=== PATIENT | female | born 1935 | race Caucasian/White ===

== ENCOUNTER → 2018-03-25 09:34 | Outpatient (CLI) | payer MEDICARE, OTHER, SELFPAY | PROVIDERS: PCP Family Medicine; Visit Provider Orthopaedic Surgery | DX: M79.604 Pain in right leg (principal); I89.0 Lymphedema, not elsewhere classified; M47.26 Other spondylosis with radiculopathy, lumbar region | CPT/HCPCS: 99213 ==

== ENCOUNTER 2018-04-15 11:57 | Emergency (ER) | payer MEDICARE, OTHER, SELFPAY ==
[2018-04-15 11:58] VITALS: BP 150/64; PULSE 92; RESP 18; TEMP 36.7; O2SAT 98
--- NOTE | 2018-04-15 12:18 | ED.GENADUL_ITS ---
Discharge Plan Discharge Details Chief Complaint: Chest/Rib Reason For Visit: SALTY RESCUE Primary Care Provider: Jackie Polk ED Provider: Porfirio Banda Home Meds and New Rx's Prescriptions: No Action JOBST STOCKINGS RF: 0 aspirin [Aspir-81] 81 MG tablet,delayed release (DR/EC) 81 mg PO DAILY RF: 0 naproxen sodium [Aleve] 220 MG tablet 220 mg PO bid prn RF: 0 meclizine 12.5 MG tablet 12.5 mg PO Q8H PRN Qty: 60 RF: 3 pravastatin 10 MG tablet 10 mg PO HS Qty: 90 RF: 4 omeprazole 20 MG capsule,delayed release(DR/EC) 20 mg PO DAILY Qty: 90 RF: 4 furosemide [Lasix] 20 MG tablet 20 mg PO QAM PRNQty: 30 RF: 6 multivitamin 1 EACH capsule 1 tab PO DAILY RF: 0 Medical Decision Making MDM Narrative Medical decision making narrative: 83-year-old female with ground-level mechanical fall at home and subsequent left chest and right foot injury. She arrives afebrile, well-appearing, normal oxygenation. Referred for x-ray to rule out underlying fracture. There is no evidence of foot or chest acute bony injury. Chest is otherwise unremarkable without pneumothorax. Patient given Tylenol and incentive spirometry. She is ambulatory without difficulty. She stable for discharge home with final diagnosis of rib contusion and foot sprain HPI - General Adult General Date/Time Provider Initiated Documentation: 04/15/18 12:06 . Limitations to Documentation: no limitations . Information obtained by: EMS . History of Present Illness 83 year old F presents to the emergency department with the chief complaint of Fall, described as moderate, Quality is described as aching, and is localized to the chest and left. Patient reports no radiation. Patient started experiencing this minute(s) and it has been constant. Movement improves symptom(s), and Rest improves symptom(s), Movement worsens symptoms . Patient notes other (Foot pain). HPI Narrative: This is an 83-year-old female who tripped on the threshold of her doorway at home and fell forward striking her chest. She did not strike her head or neck. She did not of loss of consciousness. She had immediate onset of achy, left-sided rib pain is worse with movement. No significant shortness of breath. She also complains of foot pain to the dorsum of right foot. Patient lives alone. She recently began outpatient therapy for chronic lower extremity weakness and edema that is unchanged Related Data Home Medications Medication Instructions Recorded Confirmed Jobst Stockings 01/29/13 11/27/14 multivitamin 1 tab PO DAILY 11/15/14 04/15/18 aspirin [Aspir-81] 81 mg PO DAILY tab-cap 12/29/14 04/15/18 naproxen sodium [Aleve] 220 mg PO bid prn tab-cap 08/24/15 04/15/18 furosemide [Lasix] 20 mg PO QAM PRN #30 tab-cap 10/26/17 04/15/18 Previous Rx's Medication Instructions Recorded meclizine 12.5 mg PO Q8H PRN #60 tab-cap 10/26/17 omeprazole 20 mg PO DAILY #90 tab-cap 10/26/17 pravastatin 10 mg PO HS #90 tab-cap 10/26/17 Allergies Allergy/AdvReac Type Severity Reaction Status Date / Time Tetanus Vaccines and Toxoid Allergy Mild LOCALIZED Unverified 04/15/18 12:09 REACTION indomethacin AdvReac Unknown Unverified 04/15/18 12:09 gavastatin Allergy Intermediate LE edema Uncoded 04/15/18 12:09 General Stated Complaint: Chest/Rib VIDYA: 3 Review of Systems Review of Systems 8 systems reviewed, otherwise negative [facility] Family History Mother Neoplasm Father Heart disease Myocardial infarction Asthma Sister Neoplasm Sister Neoplasm Brother No problems noted. Sister No problems noted. Sister No problems noted. Brother No problems noted. Son No problems noted. Son No problems noted. Son No problems noted. Daughter No problems noted. Daughter No problems noted. Daughter No problems noted. Medical History Gastroesophageal reflux disease Hyperlipidemia Social History Smoking/Tobacco Use Status: Never Surgical History Arthroplasty Biopsy of breast KNEE FUSION Replacement of total knee joint Rotator Cuff Repair Exam Narrative Exam Narrative: GEN: awake, alert, oriented 3. Pleasant, well groomed, interactive. HEAD: Normocephalic, atraumatic ENT: Mucous membranes moist, oropharynx unremarkable, External ear exam unremarkable EYES: PERRL, EOMI NECK: Full ROM, no WINTER, no menigismus CHEST/RESP: Left side chest lateral tenderness to palpation, clear to auscultation bilateral, no wheeze/rhonchi/rales CARDIOVASCULAR: RRR, no murmur, rub roland. 2+ Rad pulse bilateral ABDOMEN: Soft, nontender, no mass. +Bowel sounds EXT: Full ROM, no edema, no rash. The dorsum of the right foot is mildly swollen and tender to palpation Neuro: Grossly normal neurologic exam, conversant, interactive. Psych: Speech fluent, thoughts congruent, affect normal Course Vital Signs Temperature 36.7 C 04/15/18 11:58 Pulse 92 H 04/15/18 11:58 Respiratory Rate 18 04/15/18 11:58 Blood Pressure 150/64 H 04/15/18 11:58 Pulse Oximetry 98 04/15/18 11:58 Temperature 36.7 C 04/15/18 11:58 Pulse 92 H 04/15/18 11:58 Respiratory Rate 18 04/15/18 11:58 Blood Pressure 150/64 H 04/15/18 11:58 Pulse Oximetry 98 04/15/18 11:58
[2018-04-15 12:59] LABS: Bilirubin Negative (Negative); Blood Negative (Negative); Clarity Clear; Glucose Negative (Negative); Ketones Negative (Negative); Leukocyte Esterase Negative (Negative); Nitrite Negative (Negative); Specific Gravity 1.015 (1.005-1.025); Urobilinogen 0.2 EU/dL (Up TO 0.2); pH 5.5 (5-8)
--- NOTE | 2018-04-15 13:37 | DI.RAD_ITS ---
SYMPTOMS/DIAGNOSIS: DORSAL FOOT PAIN AFTER FALL, LT CHEST PAIN RIGHT FOOT: Three views. No acute fracture or dislocation is identified. There are mild degenerative changes seen of the foot. Vascular calcifications are seen in the soft tissues. No radiopaque foreign bodies are seen in the soft tissues. Calcaneal spurs are seen posteriorly. IMPRESSION: No acute fracture or dislocation. LEFT RIBS AND PA AND LATERAL CHEST: Comparison 05/25/12. The heart size and pulmonary vasculature are within normal limits. The lungs are clear. No pneumothorax or pleural effusion is seen. No evidence of a left rib fracture is seen. There are degenerative changes seen in the spine. IMPRESSION: No acute pulmonary process.
--- NOTE | 2018-04-15 14:17 | PDOC.ERCMPRO ---
Care Management Progress Note 04/15/18-Pt seen here today for Left rib pain after a fall at home. This CM was asked to do IS teaching with Pt and the importance of using it Q2hs with deep deep breaths. Pt was able to pull 1100 ML's. Pt encouraged to keep her physical therapy appt tomorrow and was explained to her they may be able to help with adaptive movements while her rib pain is healing and moving would be ideal as not to get pneumonia.
[2018-04-15] MEDS: Acetaminophen 500 MG TAB 650 MG PO (14:43)
[2018-04-15 14:52] VITALS: BP 158/84; PULSE 106; RESP 16; TEMP 36.6; O2SAT 98
== END 2018-04-15 14:51 | disposition home or self-care (01) ==
PROVIDERS: Emergency Provider Emergency Medicine; PCP Family Medicine
DX: S20.212A Contusion of left front wall of thorax, initial encounter (principal); S93.601A Unspecified sprain of right foot, initial encounter; W18.30XA Fall on same level, unspecified, initial encounter
CPT/HCPCS: 99284; 71046; 71100; 73630; 81003

== ENCOUNTER 2018-11-17 00:24 | Outpatient (CLI) | payer MEDICARE, OTHER, SELFPAY ==
--- NOTE | 2018-11-17 10:40 | DI.MAMMO_ITS ---
SYMPTOMS/DIAGNOSIS: SCREENING, Z12.31 MAMMOGRAM: Mammograms were interpreted according to the usual protocol including computer analysis with CAD system, tomosynthesis and C view imaging. The breast tissue is moderately radiodense. Scattered fibronodular densities are demonstrated bilaterally with no evidence of a dominant mass. There has been no significant interval change when compared with previous images. SUMMARY: No evidence of malignancy, category 1. Yearly screening mammography is recommended. Breast density category B. SA ASSESSMENT OF FINDINGS: Negative. Category 1. Patient will receive a letter notifying them of these results. BI-RADS category B. There are scattered areas of fibroglandular density.
== END 2018-11-17 00:44 ==
PROVIDERS: PCP Family Medicine; Visit Provider Family Medicine
DX: Z12.31 Encounter for screening mammogram for malignant neoplasm of breast (principal)
CPT/HCPCS: 77063; 77067

== ENCOUNTER 2018-11-17 10:40 | Outpatient (CLI) | payer MEDICARE, OTHER, SELFPAY ==
[2018-11-17 12:17] LABS: ALT 27 U/L (12-78); AST 28 U/L (15-37); Albumin 3.8 g/dL (3.4-5.0); Alkaline Phosphatase 93 U/L (46-116); Anion Gap 9.9 mmol/L (3-11); BUN 24 mg/dL (7-18); Bilirubin, Total 0.3 mg/dL (0.2-1.0); CO2 27.1 mmol/L (21.0-32.0); CREATININE 0.92 mg/dL (0.55-1.02); Calcium 9.4 mg/dL (8.5-10.1); Chloride 105 mmol/L (98-107); Estimated GFR 58.44 (mL/min/1.73m2); Glucose 114 mg/dL (70-100); Magnesium 2.1 mg/dL (1.8-2.4); Potassium 4.5 mmol/L (3.5-5.1); Sodium 142 mmol/L (136-145); Total Protein 7.2 g/dL (6.4-8.2)
== END 2018-11-17 11:00 ==
PROVIDERS: PCP Family Medicine; Visit Provider Family Medicine
DX: E83.42 Hypomagnesemia (principal); M79.89 Other specified soft tissue disorders
CPT/HCPCS: 36415; 80053; 83735

== ENCOUNTER 2019-01-10 16:46 | Outpatient (CLI) | payer MEDICARE, OTHER, SELFPAY ==
--- NOTE | 2019-01-10 11:15 | DI.RAD_ITS ---
SYMPTOMS/DIAGNOSIS: LEFT SCIATICA, M54.32 LUMBAR SPINE: AP, lateral and bilateral oblique views of the lumbar spine were obtained. There is again seen a left convex scoliotic curvature of the thoracolumbar spine. No acute fractures or subluxations are seen. No spondylolisthesis is present. There are endplate osteophytes seen throughout the lumbar spine, but most marked from T12-L1 through L2-L3. Degenerative changes of the facets are present at multiple levels, but most marked from L3-4 through L5-S1. Vascular calcifications are present. Degenerative changes are seen at the sacroiliac joints. IMPRESSION: Moderately severe degenerative changes in the lumbar spine.
== END 2019-01-10 17:06 ==
PROVIDERS: PCP Family Medicine; Visit Provider Family Medicine
DX: M54.32 Sciatica, left side (principal); M51.16 Intervertebral disc disorders with radiculopathy, lumbar region; M51.17 Intervertebral disc disorders with radiculopathy, lumbosacral region
CPT/HCPCS: 72110

== ENCOUNTER 2019-02-20 08:41 | Emergency (ER) | payer MEDICARE, OTHER, SELFPAY ==
[2019-02-20 08:47] VITALS: BP 167/74; PULSE 86; RESP 12; TEMP 36.7; O2SAT 98
--- NOTE | 2019-02-20 09:09 | ED.GENADUL_ITS ---
Discharge Plan Disposition Patient Disposition: HOME Condition: Stable Discharge Details Chief Complaint: Nk/Back Pain Clinical Impression: Sciatica, Bilateral edema of lower extremity, Low back pain Primary Care Provider: Jackie Polk ED Provider: Earl Huntley Home Meds and New Rx's Prescriptions: New prednisone 50 mg tablet 50 mg PO DAILY Qty: 5 RF: 0 No Action meclizine 12.5 mg tablet 12.5 mg PO Q8H PRN Qty: 60 RF: 3 pravastatin 10 mg tablet 10 mg PO HS Qty: 90 RF: 4 omeprazole 20 mg capsule,delayed release(DR/EC) 20 mg PO DAILY Qty: 90 RF: 4 furosemide [Lasix] 20 mg tablet 20 mg PO QAM PRN (Reason: edema) Qty: 30 RF: 3 JOBST STOCKINGS RF: 0 aspirin [Aspir-81] 81 MG tablet,delayed release (DR/EC) 81 mg PO DAILY RF: 0 multivitamin 1 EACH capsule 1 tab PO DAILY RF: 0 Discharge Instructions Instructions: Low Back Strain (ED), Sciatica (ED) Additional Instructions: Please take prednisone 1 tablet daily for the next 5 days as prescribed. Please take ibuprofen 600 mg and acetaminophen 1 g every 8 hours together as needed for pain. Please return to emergency department for shortness of breath chest pain increasing pain or other concern. Medical Decision Making 84-year-old female with lower back pain with left lower extremity pain shooting down the posterior lateral leg consistent with sciatic irritation and iliotibial band pain no evidence of systemic illness no evidence of cord compression no evidence of infection plan for prednisone burst continued ibuprofen and Tylenol and primary care visit as scheduled this week for consideration of physical therapy for long-term management letter patient's low back pain Patient also reports increased lower extremity swelling without shortness of breath lungs are clear bilaterally no JVD no evidence of congestive heart failure small concern for DVT will obtain duplex as part of visit today. No neurodiagnostic tech in the emergency department today patient with no acute changes or findings I feel it is reasonable to defer duplex until tomorrow a.m. we will schedule an appointment for her tomorrow. Discussed pros and cons of plan with patient patient and family agree we will have the ultrasound tomorrow and see the primary as scheduled on Thursday HPI 84-year-old female past medical history of GERD on omeprazole lower extremity edema without history of congestive heart failure on Lasix 20 mg once daily and bilateral knee replacement presents with approximately 3 to 4 days of lower back pain acute on chronic with pain radiating down left buttock and left lateral thigh to the area of her lateral knee. No trauma no chest pain no shortness of breath no dyspnea on exertion. Patient morbidly obese. Taking acetaminophen and ibuprofen intermittently with minimal to no relief. No bowel or bladder incontinence no change in sensation no ankle weakness no foot drop no change in gait pain is worse when sedentary better after moving around.pain is sharp no shortness of breath chest pain nausea vomiting diarrhea loss of consciousness fever chills or trauma General Date/Time Provider Initiated Documentation: 02/20/19 08:41 . Related Data Home Medications Medication Instructions Recorded Confirmed Jobst Stockings 01/29/13 01/10/19 multivitamin 1 tab PO DAILY 11/15/14 02/20/19 aspirin [Aspir-81] 81 mg PO DAILY tab-cap 12/29/14 02/20/19 furosemide 20 mg tablet 20 mg PO QAM PRN #30 tab-cap 11/04/18 02/20/19 meclizine 12.5 mg tablet 12.5 mg PO Q8H PRN #60 tab-cap 11/04/18 02/20/19 omeprazole 20 mg capsule,delayed 20 mg PO DAILY #90 tab-cap 11/04/18 02/20/19 release pravastatin 10 mg tablet 10 mg PO HS #90 tab-cap 11/04/18 02/20/19 prednisone 50 mg PO DAILY #5 tab 02/20/19 Previous Rx's Medication Instructions Recorded furosemide 20 mg tablet 20 mg PO QAM PRN #30 tab-cap 11/04/18 meclizine 12.5 mg tablet 12.5 mg PO Q8H PRN #60 tab-cap 11/04/18 omeprazole 20 mg capsule,delayed 20 mg PO DAILY #90 tab-cap 11/04/18 release pravastatin 10 mg tablet 10 mg PO HS #90 tab-cap 11/04/18 prednisone 50 mg PO DAILY #5 tab 02/20/19 Allergies Allergy/AdvReac Type Severity Reaction Status Date / Time Tetanus Vaccines and Toxoid Allergy Mild LOCALIZED Unverified 02/20/19 08:50 REACTION indomethacin AdvReac Unknown Unverified 02/20/19 08:50 gavastatin Allergy Intermediate LE edema Uncoded 02/20/19 08:50 General Stated Complaint: Nk/Back Pain VIDYA: 3 Review of Systems Review of Systems All systems reviewed & are unremarkable except as noted in HPI and below PFSH Social History (Updated 11/08/18 @ 10:07 by Leonardo Mac) Smoking/Tobacco Use Status: Never Alcohol Intake: never Drug use: Never Substance use type: does not use Caregiver/Support person: No Pets and animals: No Sexually active: No Current gender identity: decline to answer What is your relationship status?: How often do you talk on the phone with friends or family?: decline to answer How often do you get together with friends or relatives?: decline to answer How often do you attend yazdanism or religion services?: decline to answer Do you belong to any clubs or organized social groups?: no Panel score (0-1 are the most socially isolated patients): 0 Duration: 15-30 minutes/day Frequency: daily Estephania/Roman Catholic: No preference Special estephania needs: No Seatbelt use: always Drive intox or ride w/intox front loader residential driver: No Do you feel safe at home: Yes Do you feel safe in your relationship?: Yes Exam Narrative Exam Narrative: Pulse oximetry reviewed by me and is normal: Constitutional: in no acute distress. well appearing. oriented to person, place, and time. Eyes: conjunctivae are normal. Pupils are equal, round, and reactive to light. No scleral icterus. extraocular muscles are intact Ears/Nose/Mouth/Throat: muscousal membranes are moist. Musculoskeletal: neck is supple. normal range of motion in all extremities. Mild tenderness to palpation bilateral lower lateral back no midline tenderness no deformity no step-offs no skin changes no rash no ecchymosis steady gait mildly antalgic on the first few steps and then resolving normal reflexes normal plantar flexion and extension. No knee effusion no knee tenderness palpation patient with limited bilateral knee range of motion consistent with patient's long-term exam status post surgical replacement. Cardiovascular: Normal rate and rhythm. No lower extremity edema Respiratory: effort is normal. no stridor or respiratory distress. GastrointestinaI: abdomen soft, +BS, nontender, -rebound, -guarding. Neurological: alert and oriented to person, place, and time. normal strength, no tremor. Skin: Skin is warm and dry. not diaphoretic. Distal perfusion intact, warm extremities, cap refill < 2 seconds. Hem/Lymph/Imm: No cervical LAD, no goiter, no conjunctival pallor Psych: normal mood and affect. behavior is normal Triage and nurse notes reviewed. Course Vital Signs Temperature 36.7 C 02/20/19 08:47 Pulse 86 02/20/19 08:47 Respiratory Rate 12 02/20/19 08:47 Blood Pressure 167/74 H 02/20/19 08:47 Pulse Oximetry 98 02/20/19 08:47 Temperature 36.7 C 02/20/19 08:47 Temperature Source Temporal Artery Scan 02/20/19 08:47 Pulse 86 02/20/19 08:47 Respiratory Rate 12 02/20/19 08:47 Respiratory Effort Non-Labored 02/20/19 08:49 Blood Pressure 167/74 H 02/20/19 08:47 Blood Pressure Position Sitting 02/20/19 08:47 Pulse Oximetry 98 02/20/19 08:47 Oxygen Delivery Method Room Air 02/20/19 08:47 Oxygen Flow Rate 0 02/20/19 08:47 Pain Level 10 02/20/19 08:47
[2019-02-20] MEDS: Ibuprofen 600 MG TAB PO (09:15)
[2019-02-20] MEDS: Acetaminophen 500 MG TAB 1000 MG PO (09:16)
== END 2019-02-20 09:46 | disposition home or self-care (01) ==
PROVIDERS: Emergency Provider Emergency Medicine; PCP Family Medicine
DX: M54.42 Lumbago with sciatica, left side (principal); G89.29 Other chronic pain; R60.0 Localized edema; E66.01 Morbid (severe) obesity due to excess calories
CPT/HCPCS: 99283

== ENCOUNTER 2019-02-21 09:35 | Emergency (ER) | payer MEDICARE, OTHER, SELFPAY ==
[2019-02-21 09:41] VITALS: BP 157/86; PULSE 67; RESP 16; TEMP 36.1; O2SAT 98
--- NOTE | 2019-02-21 10:30 | W.ED.GENAD ---
Discharge Plan Disposition Patient Disposition: HOME Condition: Stable Discharge Details Chief Complaint: Recheck Clinical Impression: Localized swelling of both lower legs Primary Care Provider: Jackie Polk ED Provider: Veena Jolly Home Meds and New Rx's Prescriptions: Continued meclizine 12.5 mg tablet 12.5 mg PO Q8H PRN Qty: 60 RF: 3 pravastatin 10 mg tablet 10 mg PO HS Qty: 90 RF: 4 omeprazole 20 mg capsule,delayed release(DR/EC) 20 mg PO DAILY Qty: 90 RF: 4 furosemide [Lasix] 20 mg tablet 20 mg PO QAM PRN (Reason: edema) Qty: 30 RF: 3 JOBST STOCKINGS RF: 0 aspirin [Aspir-81] 81 MG tablet,delayed release (DR/EC) 81 mg PO DAILY RF: 0 multivitamin 1 EACH capsule 1 tab PO DAILY RF: 0 No Action celecoxib 200 mg capsule 200 mg PO DAILY Qty: 30 RF: 0 prednisone 50 mg tablet 25 mg PO DAILY Qty: 4 RF: 0 Discharge Instructions Instructions: Sciatica (ED), Leg Edema (ED) Additional Instructions: Please return immediately to the emergency department if you develop any new or worsening symptoms or if you become otherwise concerned. It is extremely important that you call as soon as possible to make an appointment to be seen in follow-up for this visit by your primary care doctor. Referrals: Jackie Polk MD [Primary Care Provider] - Discharge Data Discharge Date/Time-TO BE ENTERED AT DEPARTURE: 02/21/19 10:50 Medical Decision Making Maria R Pierre is an 84 y/o woman with h/o HLD, GERD, CHF who presented to the emergency department to obtain her US after undergoing DVT studies as an outpt this am as ordered yesterday at prior ED visit. Pt with no complaint, states back pain that she presented with yesterday now much improved and no new symptoms. On exam Pt is very well and non-toxic appearing. Non-focal neuro exam. Pt walking about the ED without issue. Exam/hx not c/w cauda equina syndrome or other cord compression, cellulilits, acute CHF, emergent metabolic/lyte derangement, other acute emergent life threatening process. US studies negative for DVT. I had a lengthy discussion with the Pt re: RTED precautions, importance of outpt f/u, and home care. Pt verbalized understanding of the plan and was amenable. All questions were answered. Pt was discharged to home with clear plan for outpt f/u. Medical Records Medical records reviewed: Yes I reviewed the patient's medical records. Imaging Data Radiologic Study: Attestation: I personally reviewed and interpreted this imaging study as follows: Radiologist's impression: BILATERAL LOWER EXTREMITY ULTRASOUND: The deep veins of the lower extremities show normal compression, augmentation and color flow. There is no evidence of a deep venous thrombus in either lower extremity. The saphenofemoral junctions appear unremarkable bilaterally. There is mild edema seen in the soft tissues of the lower extremities bilaterally. No focal fluid collection is seen. IMPRESSION: No evidence of a deep venous thrombus in either lower extremity. HPI General Mode of arrival: ambulatory. Date/Time Provider Initiated Documentation: 02/21/19 10:29. Limitations to Documentation: no limitations. Information obtained by: patient, RN notes reviewed and old records reviewed. HPI Narrative: Maria R Pierre is an 84 y/o woman with h/o HLD, GERD, CHF presenting to the emergency department to obtain results of ultrasound testing. Per Pt and record review, Pt was seen here yesterday for left sided low back pain and sciatica, which she has had in the past. Also noted b/l leg swelling, acute on chronic. Pt was d/aren to home on steroid burst for sciatica. Pt was thought to be low risk for DVT, US was not able to obtained at time of visit yesterday and Pt was instructed to return this am for r/o DVT studies. Pt reports that since starting steroids her back pain and sciatica have improved significantly. She states that she is now able to walk comfortably, and that she feels much better. Leg swelling also seems improved since yesterday. No lower leg pain. Pt reports acute on chronic low back pain with radiation into left thigh now improving since yesterday, denies any other pain, fevers, SOB, cough, rash, urinary changes or bowel changes, focal weakness or numbness. Pt did have her US testing performed. Related Data Home Medications Medication Instructions Recorded Confirmed Jobst Stockings 01/29/13 02/22/19 multivitamin 1 tab PO DAILY 11/15/14 02/22/19 aspirin [Aspir-81] 81 mg PO DAILY tab-cap 12/29/14 02/22/19 furosemide 20 mg tablet 20 mg PO QAM PRN #30 tab-cap 11/04/18 02/22/19 meclizine 12.5 mg tablet 12.5 mg PO Q8H PRN #60 tab-cap 11/04/18 02/22/19 omeprazole 20 mg capsule,delayed 20 mg PO DAILY #90 tab-cap 11/04/18 02/22/19 release pravastatin 10 mg tablet 10 mg PO HS #90 tab-cap 11/04/18 02/22/19 celecoxib 200 mg capsule 200 mg PO DAILY #30 cap 02/22/19 02/22/19 prednisone 50 mg tablet 25 mg PO DAILY #4 tab 02/22/19 02/22/19 Previous Rx's Medication Instructions Recorded furosemide 20 mg tablet 20 mg PO QAM PRN #30 tab-cap 11/04/18 meclizine 12.5 mg tablet 12.5 mg PO Q8H PRN #60 tab-cap 11/04/18 omeprazole 20 mg capsule,delayed 20 mg PO DAILY #90 tab-cap 11/04/18 release pravastatin 10 mg tablet 10 mg PO HS #90 tab-cap 11/04/18 celecoxib 200 mg capsule 200 mg PO DAILY #30 cap 02/22/19 prednisone 50 mg tablet 25 mg PO DAILY #4 tab 02/22/19 Allergies Allergy/AdvReac Type Severity Reaction Status Date / Time Tetanus Vaccines and Toxoid Allergy Mild LOCALIZED Unverified 02/22/19 14:19 REACTION indomethacin AdvReac Unknown Unverified 02/22/19 14:19 gavastatin Allergy Intermediate LE edema Uncoded 02/22/19 14:19 General Stated Complaint: Recheck VIDYA: 4 Review of Systems Review of Systems Constitutional: denies fevers Eyes: denies eye pain ENT: denies facial pain, dental pain, sore throat Cardiovascular: denies chest pain, reports leg edema Respiratory: denies SOB, cough GI: denies abdominal pain, vomiting, diarrhea, constipation : denies flank pain, urinary hesitancy/incontinence MSK: denies neck pain, arthralgias, reports acute on chronic low back radiating into left thigh now improving Skin: denies rash Neuro: denies headaches, numbness, weakness PFSH Medical History Gastroesophageal reflux disease Hyperlipidemia Social History Smoking/Tobacco Use Status: Never Alcohol Intake: never Drug use: Never Substance use type: does not use Caregiver/Support person: No Pets and animals: No Sexually active: No Current gender identity: decline to answer What is your relationship status?: How often do you talk on the phone with friends or family?: decline to answer How often do you get together with friends or relatives?: decline to answer How often do you attend episcopalian or mandaen services?: decline to answer Do you belong to any clubs or organized social groups?: no Panel score (0-1 are the most socially isolated patients): 0 Duration: 15-30 minutes/day Frequency: daily Estephania/Latter-Day: No preference Special estephania needs: No Seatbelt use: always Drive intox or ride w/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 Do you feel safe at home: Yes Do you feel safe in your relationship?: Yes Exam Narrative Exam Narrative: Constitutional: well and [id number], pleasant, conversing normally HENT: head atraumatic/normocephalic/normal inspection, mucous membranes moist Eyes: conjunctiva normal, sclera normal, pupils 3mm b/l Neck: no stridor, normal ROM, trachea midline Chest: normal inspection Resp: normal work of breathing, LCTAB Cardio: normal rate, normal rhythm, no murmur appreciated Back: normal inspection, no rash, mild TTP left paraspinals Skin: warm, dry, normal color, no rash Neuro: alert, not altered, grossly non-focal, normal tone, normal gait Ext: trace edema b/l ankles, no overlying skin changes, no posterior calf TTP Psych: normal mood, normal affect, normal behavior Course Vital Signs Temperature 36.1 C L 02/21/19 09:41 Pulse 67 02/21/19 09:41 Respiratory Rate 16 02/21/19 09:41 Blood Pressure 157/86 H 02/21/19 09:41 Pulse Oximetry 98 02/21/19 09:41 Temperature 36.1 C L 02/21/19 09:41 Temperature Source Skin 02/21/19 09:41 Pulse 67 02/21/19 09:41 Respiratory Rate 16 02/21/19 09:41 Respiratory Effort 02/21/19 09:41 Blood Pressure 157/86 H 02/21/19 09:41 Blood Pressure Position Sitting 02/21/19 09:41 Pulse Oximetry 98 02/21/19 09:41 Oxygen Delivery Method Room Air 02/21/19 09:41 Oxygen Flow Rate 0 02/21/19 09:41 Pain Level 0 02/21/19 09:41
== END 2019-02-21 10:50 | disposition home or self-care (01) ==
PROVIDERS: Emergency Provider Student in an Organized Health Care Education/Training Program; PCP Family Medicine
DX: R60.9 Edema, unspecified (principal); I50.9 Heart failure, unspecified

== ENCOUNTER 2019-02-21 14:41 | Outpatient (CLI) | payer MEDICARE, OTHER, SELFPAY ==
--- NOTE | 2019-02-21 09:05 | DI.US_ITS ---
SYMPTOM/DIAGNOSIS: LE EDEMA, R/O DVT BILATERAL LOWER EXTREMITY ULTRASOUND: The deep veins of the lower extremities show normal compression, augmentation and color flow. There is no evidence of a deep venous thrombus in either lower extremity. The saphenofemoral junctions appear unremarkable bilaterally. There is mild edema seen in the soft tissues of the lower extremities bilaterally. No focal fluid collection is seen. IMPRESSION: No evidence of a deep venous thrombus in either lower extremity.
== END 2019-02-21 15:01 ==
PROVIDERS: PCP Family Medicine; Visit Provider Emergency Medicine
DX: R22.42 Localized swelling, mass and lump, left lower limb (principal); R22.41 Localized swelling, mass and lump, right lower limb; R60.0 Localized edema
CPT/HCPCS: 93970

== ENCOUNTER 2019-10-12 10:08 | Outpatient (CLI) | payer MEDICARE, OTHER, SELFPAY ==
[2019-10-12 10:41] LABS: HCT 34.1 % (36.0-46.0); HGB 10.8 g/dL (12.0-15.5); Mean Corp. HGB Concentration 31.7 g/dL (32.0-36.0); Mean Corpuscular Volume 94.7 fL (80-95); Mean Platelet Volume 10.4 fL (8.0-11.0); Platelet Count 202 x1000/uL (130-400); RBC Distribution Width 14.6 % (11.7-14.6); White Blood Cell Count 4.06 k/cumm (4.4-10.8)
[2019-10-12 10:52] LABS: Anion Gap 8.6 mmol/L (3-11); BUN 17 mg/dL (7-18); CO2 26.4 mmol/L (21.0-32.0); CREATININE 0.91 mg/dL (0.55-1.02); Calcium 8.9 mg/dL (8.5-10.1); Chloride 108 mmol/L (98-107); Estimated GFR 59.04 (mL/min/1.73m2); Glucose 93 mg/dL (74-106); Potassium 4.1 mmol/L (3.5-5.1); Sodium 143 mmol/L (136-145)
== END 2019-10-12 10:28 ==
PROVIDERS: PCP Family Medicine; Visit Provider Family Medicine
DX: R55 Syncope and collapse (principal)
CPT/HCPCS: 36415; 80048; 85027

== ENCOUNTER 2020-03-08 02:13 | Outpatient (CLI) | payer MEDICARE, OTHER, SELFPAY ==
[2020-03-08 12:43] LABS: Calculated LDL 186 mg/dL (<100); Cholesterol 276 mg/dL (<200); HDL Cholesterol 69 mg/dL (40-60); Triglyceride 106 mg/dL (<150)
== END 2020-03-08 02:33 ==
PROVIDERS: PCP Family Medicine; Visit Provider Family Medicine
DX: E78.5 Hyperlipidemia, unspecified (principal)
CPT/HCPCS: 36415; 80061

== ENCOUNTER 2020-08-17 04:44 | Outpatient (CLI) | payer MEDICARE, OTHER, SELFPAY ==
--- NOTE | 2020-08-17 07:00 | DI.RAD_ITS ---
EXAM: XR FOOT LT COMPLETE CLINICAL HISTORY: Growth on lateral side of 5th digit/very painful,M79.672. TECHNIQUE: 2D digital imaging was performed. COMPARISON: CR RIGHT FOOT COMPLETE from 12/04/2011 FINDINGS: There is no evidence of fracture or diastasis of the Lisfranc joint. However, there are significant degenerative changes in the midfoot at the articulations between the metatarsal bases and cuneiform-c uboid bones. Also some degenerative changes at the articulations between the navicular and cuneiform s and cuboid. There is relative sparing of the Choparts joints and subtalar joint appears unremarkab le. A large inferior calcaneal spur is noted. Vascular calcification is noted the ankle level. Bon e density is age-appropriate. No osseous lesions. No erosions. IMPRESSION: Midfoot degenerative changes. No fractures. No osseous lesions. DATA REPOSITORY: RADIATION DOSE DELIVERED:
== END 2020-08-17 05:04 ==
PROVIDERS: PCP Family Medicine; Visit Provider Nurse Practitioner Family
DX: M19.072 Primary osteoarthritis, left ankle and foot (principal)
CPT/HCPCS: 73630

== ENCOUNTER 2021-01-02 03:26 | Outpatient (CLI) | payer MEDICARE, OTHER, SELFPAY ==
[2021-01-02 10:06] LABS: ALT 35 U/L (14-59); AST 31 U/L (15-37); Alkaline Phosphatase 107 U/L (46-116); Anion Gap 10.7 mmol/L (3-11); BUN 20 mg/dL (7-18); Bilirubin, Total 0.5 mg/dL (0.2-1.0); CO2 26.3 mmol/L (21.0-32.0); CREATININE 0.9 mg/dL (0.55-1.02); Calcium 9.6 mg/dL (8.5-10.1); Calculated LDL 120 mg/dL (<100); Chloride 107 mmol/L (98-107); Cholesterol 230 mg/dL (<200); Estimated GFR 59.65 (mL/min/1.73m2); Glucose 98 mg/dL (74-106); HDL Cholesterol 96 mg/dL (40-60); Magnesium 2.3 mg/dL (1.8-2.4); Sodium 144 mmol/L (136-145); Total Protein 7.2 g/dL (6.4-8.2); Triglyceride 70 mg/dL (<150)
== END 2021-01-02 03:27 | disposition home or self-care (01) ==
LOC: LBO 03:27
PROVIDERS: PCP Family Medicine; Visit Provider Family Medicine
DX: E78.5 Hyperlipidemia, unspecified (principal); E83.42 Hypomagnesemia
CPT/HCPCS: 36415; 80053; 80061; 83735

== ENCOUNTER 2022-06-09 18:14 | Outpatient (REF) | payer MEDICARE, OTHER, SELFPAY | END 2022-06-09 18:15 | disposition home or self-care (01) | LOC: LBN 18:14 | PROVIDERS: PCP Family Medicine; Visit Provider Nurse Practitioner Family | DX: R31.9 Hematuria, unspecified (principal) | CPT/HCPCS: 87086 ==

== ENCOUNTER 2023-05-08 07:54 | Day surgery (SDC) | payer MEDICARE, OTHER, SELFPAY ==
[2023-05-08 08:08] VITALS: BP 189/82; PULSE 93; RESP 19; TEMP 36.3; O2SAT 99
[2023-05-08] MEDS: Tropicam./Phenyleph. (1/2.5%) 5 ML BTL OD ×3 (08:24→08:34)
--- NOTE | 2023-05-08 08:32 | ANES.PREOP_ITS ---
General Info Date of Service Date Performed: 05/08/23 Height: 5 ft 1 in Weight: 85.3 kg Body Mass Index (BMI): 35.5 Surgical Procedure: Operation Date: 05/08/23 10:40 Proposed Procedure Side Surgeon p Cataract Extraction with IOL Implant Right Mark Kwon MD Meds Allergies and Home Medications Allergies Allergy/AdvReac Type Severity Reaction Status Date / Time Tetanus Vaccines and Toxoid Allergy Mild LOCALIZED Verified 05/08/23 08:21 REACTION indomethacin AdvReac Unknown Verified 05/08/23 08:21 gavastatin Allergy Intermediate LE edema Uncoded 05/08/23 08:21 Home Medication Medication Instructions Recorded Jobst Stockings 01/29/13 multivitamin 1 tab PO DAILY 11/15/14 omeprazole 20 mg capsule,delayed 20 mg PO HS 05/07/23 release Current Visit Medications: Current Medications Generic Name Dose Route Start Last Admin Trade Name Freq PRN Reason Stop Dose Admin Acetaminophen 1,000 mg 05/08/23 06:00 Acetaminophen 500 Mg Tab PO 06/07/23 05:59 Q4H PRN PRN Balanced Salt Solution 500 ml 05/08/23 06:00 Balanced Salt Soln.-Plus 500 Ml Bag OP 06/07/23 05:59 DIRECTED IMTIAZ Miscellaneous Medication 0 ml 05/08/23 06:00 Prednisolone 1%, Moxifloxacin 0.5%, Nepafenac 0.1% 5ml Btl OD 06/07/23 05:59 DIRECTED IMTIAZ Miscellaneous Medication 0 ml 05/08/23 06:00 05/08/23 08:29 Tropicam./Phenyleph. (1/2.5%) 5 Ml Btl OD 06/07/23 05:59 1 drp DIRECTED IMTIAZ Administration Tetracaine HCl 0 ml 05/08/23 06:00 Tetracaine 0.5% 4 Ml Btl OD 06/07/23 05:59 DIRECTED IMTIAZ PFSH Active Problems Active Problems: Problem Status Onset Code Nuclear age-related cataract, right eye H25.11 Sciatica 07/02/03 M54.30 Osteoarthritis M19.90 Obesity 08/05/12 E66.9 Hyperlipidemia E78.5 Left foot pain M79.672 Elevated blood pressure reading R03.0 Physician orders for life-sustaining treatment (POLST) form indicates patient wish for jd-jic-vgtantclscl status Z66 Impacted cerumen, right ear H61.21 Lymphedema of both lower extremities I89.0 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) Murmur, cardiac (10/26/17) had negative cardiac echo 11/2017 Surgical History Surgical History Arthroplasty TEMPOROMANDIBULAR Biopsy of breast KNEE FUSION 11/2014 Replacement of total knee joint 1996 RIGHT 2003 LEFT Rotator Cuff Repair Tobacco Smoking/Tobacco Use Status: Never Passive smoking exposure: No Second hand exposure: No Alcohol Alcohol Intake: never Substance Use Substance use: Never Substance use type: does not use Vital Signs and Lab Results Vital Signs Most Recent Vital Signs in EMR: Most Recent Vital Signs Temp Pulse Resp BP Pulse Ox 36.3 C L 93 H 19 189/82 H 99 05/08/23 08:08 05/08/23 08:08 05/08/23 08:08 05/08/23 08:08 05/08/23 08:08 Lab Results Blood Type / Crossmatch: No Data to Display Complete Blood Count: No Data to Display Complete Metabolic Panel: No Data to Display Liver Function Panel: No Data to Display Coagulation Panel: No Data to Display Cardiac Panel: No Data to Display Arterial Blood Gas: No Data to Display Venous Blood Gas: No Data to Display Pancreas Panel: No Data to Display Thyroid Panel: No Data to Display Infectious Disease: No Data to Display Blood Cultures: No Data to Display Toxicology Panel: No Data to Display Imaging and Studies Imaging and Studies Study information below may be from another EMR and interpreted by another provider. Please see original notes in EMR for more complete details. Echocardiogram Summary: Summary: 1. Left ventricle: The cavity size was normal. Wall thickness was normal. Systolic function was normal. The estimated ejection fraction was 55-60%. Wall motion was normal; there were no regional wall motion abnormalities. The study is not technically sufficient to allow evaluation of LV diastolic function. 2. Aortic valve: There was trivial regurgitation. 3. Ascending aorta: The ascending aorta was mildly dilated. 4. Mitral valve: Mildly calcified annulus. 5. Left atrium: The atrium was mildly dilated. 6. Right ventricle: The cavity size was normal. Wall thickness was normal. Systolic function was normal. 7. Right atrium: The atrium was mildly dilated. 11/03/17 Anesthesia Assessment and Plan Anesthesia History Personal History: No History of Anesthesia Complications Family History: No Family History of Anesthesia Complications Exercise Tolerance Exercise Tolerance: Metabolic Equivalents<4 (secondary to walter knee pain, uses cane) Pertinent Negatives Pertinent Negatives: No Symptoms of GERD, No Major Cardiovascular Symptoms or Complaints and No Major Pulmonary Symptoms or Complaints Cardiac & Pulmonary Exam Cardiac Exam: Normal S1/S2 Heart Sounds and Heart Murmur Present Pulmonary Exam: Clear Bilateral Breath Sounds Implantable Cardiac Device Does patient have a Pacemaker or an ICD?: No Airway Exam Known Difficult Airway: No Mallampati Class: 3 Mouth Opening: Normal (> 3cm) Thyromental Distance: Greater than 3 cm Neck Range of Motion: Full ROM Neck Circumference: Normal Teeth Condition: Removable Dentures/Plates Upper, Removable Dentures/Plates Lower and Edentulous ASA Classification ASA Score: ASA 2 Emergency Case?: No NPO Status NPO Status: NPO Clears >2 hours, Solids >8 hours Anesthesia Plan Resuscitation Status: Full Code Anesthesia Technique: MAC Anesthesia Airway Planned: Natural Airway Monitors Used: Standard Monitors
[2023-05-08 09:15] VITALS: BMI 35.5
[2023-05-08] MEDS: Tetracaine 0.5% 4 ML BTL OD (09:50)
[2023-05-08] MEDS: Phenylephrine/Lidocaine (15/10) MG/ML 1 ML VIAL (09:55)
[2023-05-08] MEDS: Duovisc Viscoelastic System EACH 1 EACH (09:55)
[2023-05-08] MEDS: Balanced Salt Soln.-PLUS 500 ML BAG OP (09:55)
[2023-05-08] MEDS: Lidocaine 1% Pres-Free 5 ML VIAL (09:55)
[2023-05-08] MEDS: Povidone-Iodine Ophth 30 ML BTL (10:08)
[2023-05-08 10:16] VITALS: BP 146/84; PULSE 109; RESP 18; TEMP 36.3; O2SAT 100
--- NOTE | 2023-05-08 10:16 | W.PM.DSUDISC ---
Date of service: 05/08/23 Time of Service: 10:16 Discharge Plan Disposition Patient Disposition: Home Discharge Details Attending Provider: Mark Kwon Primary Care Provider: Suzie Cevallos Home Meds and New Rx's Prescriptions: No Action JOBST STOCKINGS Rx Instructions: 1 PAIR BILATERAL THIGH HIGH 20 MM HG JOBST STOCKINGS DX: VENOUS STASIS EDEMA multivitamin 1 EACH capsule 1 tab PO DAILY omeprazole 20 mg capsule,delayed release(DR/EC) 20 mg PO HS Rx Instructions: 1 CAP DAILY Discharge Instructions Stand Alone Forms: Post-op Topical Cataract, Sarah Riojasey (DSU) Discharge Orders Discharge Orders: Discharge Order (Routine); Ordered 05/08/23 Ordered By: Mark Kwon DS: Diagnosis Discharge Diagnosis (1) Nuclear age-related cataract, right eye: Status: Resolved
--- NOTE | 2023-05-08 10:16 | W.PM.OP ---
Date of service: 05/08/23 Time of Service: 10:17 Operative Note Operative Note DATE OF PROCEDURE: 02/18/21 PRE-OP DIAGNOSIS: Nuclear cataract, right eye POST-OP DIAGNOSIS: same PROCEDURE: Cataract extraction using phacoemulsification with intraocular lens implant, right eye SURGEON: Mark Kwon ANESTHESIA TYPE: Local By Surgeon and MAC Refer to Anesthesia Record ESTIMATED BLOOD LOSS: 0 PATHOLOGY: none sent COMPLICATIONS: None Patient was transported to: same day Patient's condition: stable Implants: Donaldo & Donaldo Tecnis Eyhance [id number] Indications: Progressive visual loss due to cataract, right eye Procedure Description: CATARACT SURGERY OPERATIVE REPORT PREOPERATIVE DIAGNOSIS: 1. Nuclear cataract, right eye POSTOPERATIVE DIAGNOSIS: Same OPERATION: 1. Cataract extraction using phacoemulsification with posterior chamber intraocular lens implant, right eye. IOL: IOL Oracle Fusion Middleware Architect/Model: Donaldo & Donaldo Tecnis Eyhance DIB00 IOL Power: + 26.0 diopters IOL Serial Number: [id number] Optic Diameter: 6.0mm Haptic/Overall Diameter: 13.0mm PHACO INFO: BruceBaseTraceurion Vision System with OZil and Active Fluidics Cumulative Dispersed Energy (CDE): 22.33 seconds SURGEON: Mark Kwon MD, RHODA ANESTHESIA: Monitored Anesthesia Care (MAC), with local sub-tenon's anesthetic infiltration COMPLICATIONS: None SPECIMENS: None INDICATIONS FOR PROCEDURE: The patient is an 88-year-old lady with history of diminished visual acuity in her right eye secondary to the development of nuclear cataract. She is significantly symptomatic that she desires cataract surgery and attempt to improve and maximize her vision. The option of cataract surgery was offered to the patient and she wished to proceed. See office notes for detailed information. PROCEDURE: The correct surgical eye was identified and marked as the right eye and the pupil was dilated in the preoperative area using mydriatics and cycloplegics. The dilated pupil size was 6.0 mm. Oral sedation was administered in the form of an Imprimis MKO Melt (midazolam 3mg/ketamine 25mg/ondansetron 2mg). The patient elected to proceed without oral sedation. The patient was brought to the operating room where cardiopulmonary monitoring was instituted and surgical time-out was performed, confirming the correct operative eye and IOL power. Topical anesthesia was administered and ophthalmic povidone-iodine 5% was instilled into the conjunctival fornices. The jacky-ocular area was prepped with Betadine 10% solution and draped in the usual sterile fashion for intraocular surgery, including an aperture drape. A Tegaderm transparent film dressing was cut in half and used to cover the lashes and lid margins. Care was taken to sequester the lashes and lid margins under the Tegaderm dressing. A lid speculum was placed between the lids of the operative eye and the Bruce LuxOR Revalia operating microscope was maneuvered into position. Pham scissors were then used to make a conjunctival buttonhole approximately 6mm posterior to the limbus in the inferonasal quadrant. Blunt dissection was carried out to expose bare sclera, and a blunt-tipped sub-tenon?s anesthesia cannula was introduced and passed posteriorly along the globe where non-preserved plain lidocaine was injected into posterior sub-Tenon?s space. A sideport knife was used to make a paracentesis port. Intraocular phenylephrine/lidocaine was injected into the anterior chamber. The anterior chamber was filled with viscoelastic. A keratome knife was used to construct a 2-plane clear corneal tunnel extending 2.0mm into clear cornea. A flap was raised on the anterior capsule and capsulorhexis forceps were used to complete a continuous curvilinear capsulorhexis of 5.0 mm. Balanced salt solution was then used to perform cortical cleaving hydrodissection and nuclear hydrodelineation until the lens could be freely rotated within the capsular bag. The lens nucleus was then disassembled and removed within the capsular bag and iris plane using phacoemulsification. Residual cortical material was removed using the I/A handpiece. The posterior capsule was carefully polished to remove as much residual lens epithelial cells as safely possible. The capsular bag was then inflated and the anterior chamber deepened with cohesive viscoelastic. The lens implant described above was inserted into the capsular bag using the Donaldo and Mulu Simplicity pre-loaded injector. A Kuglen hook was used to dial the IOL into position. Residual viscoelastic was then removed first from posterior to the IOL, then from the anterior chamber using the I/A handpiece. The lens implant was noted to center nicely within the capsular bag. The incisions were stromally hydrated, and the anterior chamber was reformed using BSS. Then 0.5cc of moxifloxacin 1.0mg/ml were injected into the capsular bag and anterior chamber. The incisions were checked with a Weck spear and found to be secure. Several drops of ophthalmic povidone-iodine 5% were then applied to the eye followed by two drops of Imprimis combination prednisolone/moxifloxacin/nepafenac solution. The drapes were removed and a clear plastic protective eye shield was placed over the eye. The patient was then returned to Same Day Surgery in stable condition.
[2023-05-08 10:37] VITALS: BP 164/79; PULSE 95; RESP 18; TEMP 36.6; O2SAT 99
--- NOTE | 2023-05-08 10:38 | W.ANESPOSTOP ---
Postoperative Evaluation Date, Time and Location Date Performed: 05/08/23 Time Performed: 10:33 Patient Location: Day Surgery Unit Vital Signs Most Recent Imported Vital Signs: Most Recent Vital Signs Temp Pulse Resp BP Pulse Ox 36.3 C L 109 H 18 146/84 H 100 05/08/23 10:16 05/08/23 10:16 05/08/23 10:16 05/08/23 10:16 05/08/23 10:16 Pain Score Most Recent Pain Score: Most Recent Pain Score Pain Level 0 05/08/23 10:16 Assessment Mental Status: Awake (Alert & Oriented to Patient Baseline) Airway and Respiratory Function: Patent airway with normal (patient baseline) respiratory exam Cardiovascular Function: Hemodynamically Stable Hydration Status: Adequately Hydrated Nausea & Vomiting: No Nausea or Vomiting Pain: Pt. Denies Any Pain Peripheral Nerve Block: Patient did not receive a nerve block
== END 2023-05-08 11:06 | disposition home or self-care (01) ==
LOC: SUR 07:55
PROVIDERS: PCP Family Medicine; Visit Provider Ophthalmology
PROC: (CPT 66984; principal; 2023-05-08 10:30)
DX: H25.11 Age-related nuclear cataract, right eye (principal)
CPT/HCPCS: 66984; V2632

== ENCOUNTER 2023-05-12 21:30 | Outpatient (REF) | payer MEDICARE, OTHER, SELFPAY ==
[2023-05-12 21:38] LABS: Bilirubin Negative (Negative); Blood Negative (Negative); Clarity Sl Cloudy (Clear); Glucose Negative (Negative); Ketones Trace mg/dL (Negative); Leukocyte Esterase Negative (Negative); Nitrite Negative (Negative); Specific Gravity 1.025 (1.005-1.025); Urobilinogen 0.2 mg/dL (Up to 0.2); pH 6.5 (5-8)
[2023-05-12 21:49] LABS: Bacteria Few HPF (Negative); C & S Indicated? No/Sq. Contamination; Crystals Negative HPF (Negative); Epithelial Cells Many HPF (Negative); Mucus Negative (Negative); RBC 0-2 HPF (0-2)
== END 2023-05-12 21:31 | disposition home or self-care (01) ==
LOC: LBN 21:30
PROVIDERS: PCP Family Medicine; Visit Provider Nurse Practitioner Family
DX: R29.6 Repeated falls (principal); R41.0 Disorientation, unspecified
CPT/HCPCS: 81003; 81015

== ENCOUNTER 2023-05-22 08:04 | Day surgery (SDC) | payer MEDICARE, OTHER, SELFPAY ==
[2023-05-22 08:10] VITALS: BP 166/96; PULSE 86; RESP 20; TEMP 36.3; O2SAT 100
[2023-05-22] MEDS: Tropicam./Phenyleph. (1/2.5%) 5 ML BTL OS ×3 (08:24→08:32)
--- NOTE | 2023-05-22 08:24 | ANES.PREOP_ITS ---
General Info Date of Service Date Performed: 05/22/23 Height: 5 ft 1 in Weight: 86.636 kg Body Mass Index (BMI): 36.1 Surgical Procedure: Operation Date: 05/22/23 10:40 Proposed Procedure Side Surgeon p Cataract Extraction with IOL Implant Left Mark Kwon MD Meds Allergies and Home Medications Allergies Allergy/AdvReac Type Severity Reaction Status Date / Time Tetanus Vaccines and Toxoid Allergy Mild LOCALIZED Verified 05/22/23 08:20 REACTION indomethacin AdvReac Unknown Verified 05/22/23 08:20 gavastatin Allergy Intermediate LE edema Uncoded 05/22/23 08:20 Home Medication Medication Instructions Recorded Jobst Stockings 01/29/13 multivitamin 1 tab PO DAILY 11/15/14 omeprazole 20 mg capsule,delayed 20 mg PO HS 05/07/23 release Current Visit Medications: Current Medications Generic Name Dose Route Start Last Admin Trade Name Freq PRN Reason Stop Dose Admin Acetaminophen 1,000 mg 05/22/23 06:00 Acetaminophen 500 Mg Tab PO 06/21/23 05:59 Q4H PRN PRN Balanced Salt Solution 500 ml 05/22/23 06:00 Balanced Salt Soln.-Plus 500 Ml Bag OP 06/21/23 05:59 DIRECTED IMTIAZ Miscellaneous Medication 0 ml 05/22/23 06:00 Prednisolone 1%, Moxifloxacin 0.5%, Nepafenac 0.1% 5ml Btl OS 06/21/23 05:59 DIRECTED IMTIAZ Miscellaneous Medication 0 ml 05/22/23 06:00 Tropicam./Phenyleph. (1/2.5%) 5 Ml Btl OS 06/21/23 05:59 DIRECTED IMTIAZ Tetracaine HCl 0 ml 05/22/23 06:00 Tetracaine 0.5% 4 Ml Btl OS 06/21/23 05:59 DIRECTED IMTIAZ PFSH Active Problems Active Problems: Problem Status Onset Code Nuclear age-related cataract, left eye H25.12 Nuclear age-related cataract, right eye H25.11 Sciatica 07/02/03 M54.30 Osteoarthritis M19.90 Obesity 08/05/12 E66.9 Hyperlipidemia E78.5 Left foot pain M79.672 Elevated blood pressure reading R03.0 Physician orders for life-sustaining treatment (POLST) form indicates patient wish for [id number] status Z66 Impacted cerumen, right ear H61.21 Lymphedema of both lower extremities I89.0 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) Murmur, cardiac (10/26/17) had negative cardiac echo 11/2017 Surgical History Surgical History Arthroplasty TEMPOROMANDIBULAR Biopsy of breast KNEE FUSION 11/2014 Replacement of total knee joint 1996 RIGHT 2003 LEFT Rotator Cuff Repair Tobacco Smoking/Tobacco Use Status: Never Passive smoking exposure: No Second hand exposure: No Alcohol Alcohol Intake: never Substance Use Substance use: Never Substance use type: does not use Vital Signs and Lab Results Vital Signs Most Recent Vital Signs in EMR: Temp Pulse Resp BP Pulse Ox 36.3 C L 86 20 166/96 H 100 05/22/23 08:10 05/22/23 08:10 05/22/23 08:10 05/22/23 08:10 05/22/23 08:10 Lab Results Blood Type / Crossmatch: No Data to Display Complete Blood Count: No Data to Display Complete Metabolic Panel: No Data to Display Liver Function Panel: No Data to Display Coagulation Panel: No Data to Display Cardiac Panel: No Data to Display Arterial Blood Gas: No Data to Display Venous Blood Gas: No Data to Display Pancreas Panel: No Data to Display Thyroid Panel: No Data to Display Infectious Disease: No Data to Display Blood Cultures: No Data to Display Toxicology Panel: No Data to Display Imaging and Studies Imaging and Studies Study information below may be from another EMR and interpreted by another provider. Please see original notes in EMR for more complete details. Echocardiogram Summary: Summary: 1. Left ventricle: The cavity size was normal. Wall thickness was normal. Systolic function was normal. The estimated ejection fraction was 55-60%. Wall motion was normal; there were no regional wall motion abnormalities. The study is not technically sufficient to allow evaluation of LV diastolic function. 2. Aortic valve: There was trivial regurgitation. 3. Ascending aorta: The ascending aorta was mildly dilated. 4. Mitral valve: Mildly calcified annulus. 5. Left atrium: The atrium was mildly dilated. 6. Right ventricle: The cavity size was normal. Wall thickness was normal. Systolic function was normal. 7. Right atrium: The atrium was mildly dilated. 11/03/17 Anesthesia Assessment and Plan Anesthesia History Personal History: No History of Anesthesia Complications Family History: No Family History of Anesthesia Complications Exercise Tolerance Exercise Tolerance: Metabolic Equivalents<4 (secondary to walter knee pain, uses cane) Pertinent Negatives Pertinent Negatives: No Major Cardiovascular Symptoms or Complaints and No Major Pulmonary Symptoms or Complaints Cardiac & Pulmonary Exam Cardiac Exam: Normal S1/S2 Heart Sounds and Heart Murmur Present Pulmonary Exam: Clear Bilateral Breath Sounds Implantable Cardiac Device Does patient have a Pacemaker or an ICD?: No Airway Exam Known Difficult Airway: No Mallampati Class: 3 Mouth Opening: Normal (> 3cm) Thyromental Distance: Greater than 3 cm Neck Range of Motion: Full ROM Neck Circumference: Normal Teeth Condition: Removable Dentures/Plates Upper, Removable Dentures/Plates L ower and Edentulous ASA Classification ASA Score: ASA 2 Emergency Case?: No NPO Status NPO Status: NPO Clears >2 hours, Solids >8 hours Anesthesia Plan Resuscitation Status: Full Code Anesthesia Technique: MAC Anesthesia Airway Planned: Natural Airway Monitors Used: Standard Monitors
[2023-05-22 08:52] VITALS: BMI 36.1
[2023-05-22] MEDS: Balanced Salt Soln.-PLUS 500 ML BAG OP (09:36)
[2023-05-22] MEDS: Tetracaine 0.5% 4 ML BTL OS (09:37)
[2023-05-22] MEDS: Duovisc Viscoelastic System EACH 1 EACH (09:38)
[2023-05-22] MEDS: Lidocaine 1% Pres-Free 5 ML VIAL (09:38)
[2023-05-22] MEDS: Phenylephrine/Lidocaine (15/10) MG/ML 1 ML VIAL (09:39)
[2023-05-22] MEDS: Povidone-Iodine Ophth 30 ML BTL (09:40)
[2023-05-22 10:04] VITALS: BP 146/81; PULSE 80; RESP 16; TEMP 36.1; O2SAT 100
--- NOTE | 2023-05-22 10:08 | W.PM.DSUDISC ---
Date of service: 05/22/23 Time of Service: 10:08 Discharge Plan Disposition Patient Disposition: Home Discharge Details Attending Provider: Mark Kwon Primary Care Provider: Suzie Cevallos Home Meds and New Rx's Prescriptions: No Action JOBST STOCKINGS Rx Instructions: 1 PAIR BILATERAL THIGH HIGH 20 MM HG JOBST STOCKINGS DX: VENOUS STASIS EDEMA multivitamin 1 EACH capsule 1 tab PO DAILY omeprazole 20 mg capsule,delayed release(DR/EC) 20 mg PO HS Rx Instructions: 1 CAP DAILY Discharge Instructions Stand Alone Forms: Post-op Topical Cataract, Sarah Riojsaey (DSU) Discharge Orders Discharge Orders: Discharge Order (Routine); Ordered 05/22/23 Ordered By: Mark Kwon DS: Diagnosis Discharge Diagnosis (1) Nuclear age-related cataract, left eye: Status: Resolved
--- NOTE | 2023-05-22 10:09 | ROE_ITS ---
Date of service: 05/22/23 Time of Service: 10:09 Operative Note Operative Note DATE OF PROCEDURE: 05/22/23 PRE-OP DIAGNOSIS: Nuclear cataract, left eye POST-OP DIAGNOSIS: same PROCEDURE: Cataract extraction using phacoemulsification with intraocular lens implant, left eye SURGEON: Mark Kwon ANESTHESIA TYPE: Local By Surgeon and MAC Refer to Anesthesia Record PATHOLOGY: none sent COMPLICATIONS: None Patient was transported to: same day Patient's condition: stable Implants: Donaldo and Donaldo Tecnis Eyhance DIB00 Indications: Progressive decreased vision due to cataract, left eye Procedure Description: CATARACT SURGERY OPERATIVE REPORT PREOPERATIVE DIAGNOSIS: 1. Nuclear cataract, left eye POSTOPERATIVE DIAGNOSIS: Same OPERATION: 1. Cataract extraction using phacoemulsification with posterior chamber intraocular lens implant, left eye. IOL: IOL Extension Service Specialist/Model: Donaldo & Donaldo Tecnis Eyhance DIB00 IOL Power: + 25.0 diopters IOL Serial Number: [id number] Optic Diameter: 6.0 mm Haptic/Overall Diameter: 13.0 mm PHACO INFO: [employer] Vision System with OZil and Active [employer] Cumulative Dispersed Energy (CDE): 17.68 seconds SURGEON: Mark Kwon MD, RHODA ANESTHESIA: Monitored A [facility] (MAC), with local sub-tenon's anesthetic infiltration COMPLICATIONS: None SPECIMENS: None INDICATIONS FOR PROCEDURE: The patient is an 88-year-old lady with history of diminished visual acuity in both eyes secondary to the development of dense bilateral nuclear cataract. She has already undergone cataract surgery in the right eye and is doing well postoperatively. She now presents for cataract surgery in the left eye. See office notes for detailed information. PROCEDURE: The correct surgical eye was identified and marked as the left eye and the pupil was dilated in the preoperative area using mydriatics and cycloplegics. The dilated pupil size was 7.0 mm. Oral sedation was administered in the form of an Imprimis MKO Melt (midazolam 3mg/ketamine 25mg/ondansetron 2mg). The patient was brought to the operating room where cardiopulmonary monitoring was instituted and surgical time-out was performed, confirming the correct operative eye and IOL power. Topical anesthesia was administered and ophthalmic povidone-iodine 5% was instilled into the conjunctival fornices. The jacky-ocular area was prepped with Betadine 10% solution and draped in the usual sterile fashion for intraocular surgery, including an aperture drape. A Tegaderm transparent film dressing was cut in half and used to cover the lashes and lid margins. 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 Care was taken to sequester the lashes and lid margins under the Tegaderm dressing. A lid speculum was placed between the lids of the operative eye and the Bruce Lux[employer] Revalia operating microscope was maneuvered into position. Pham scissors were then used to make a conjunctival buttonhole approximately 6mm posterior to the limbus in the inferonasal quadrant. Blunt dissection was carried out to expose bare sclera, and a blunt-tipped sub-tenon?s anesthesia cannula was introduced and passed posteriorly along the globe where non- preserved plain lidocaine was injected into posterior sub-Tenon?s space. A sideport knife was used to make a paracentesis port. Intraocular phenylephrine/lidocaine was injected into the anterior chamber.. The anterior chamber was filled with viscoelastic. A keratome knife was used to construct a 2-plane near-clear corneal tunnel extending 2.0mm into clear cornea. A flap was raised on the anterior capsule and capsulorhexis forceps were used to complete a continuous curvilinear capsulorhexis of 5.5 mm. Balanced salt solution was then used to perform cortical cleaving hydrodissection and nuclear hydrodelineation until the lens could be freely rotated within the capsular bag. The lens nucleus was then disassembled and removed within the capsular bag and iris plane using phacoemulsification. Residual cortical material was removed using the irrigation/aspiration handpiece. The posterior capsule was carefully polished to remove as much residual lens epithelial cells as safely possible. The capsular bag was then inflated and the anterior chamber deepened with viscoelastic. The lens implant described above was inserted into the capsular bag using the Donaldo and Donaldo Simplicity pre-loaded injector. A Kuglen hook was used to dial the IOL into position. Residual viscoelastic was then removed first from posterior to the IOL, then from the anterior chamber using the I/A handpiece. The lens implant was noted to center nicely within the capsular bag. The incisions were stromally hydrated, and the anterior chamber was reformed using BSS. Then 0.5cc of moxifloxacin 1.0mg/ml were injected into the capsular bag and anterior chamber. The incisions were checked with a Weck spear and found to be secure. Several drops of ophthalmic povidone-iodine 5% were then applied to the eye followed by two drops of Imprimis combination prednisolone/moxifloxacin/nepafenac solution. The drapes were removed and a clear plastic protective eye shield was placed over the eye. The patient was then returned to Same Day Surgery in stable condition.
--- NOTE | 2023-05-22 10:32 | W.ANESPOSTOP ---
Postoperative Evaluation Date, Time and Location Date Performed: 05/22/23 Time Performed: 10:06 Patient Location: Day Surgery Unit Vital Signs Most Recent Imported Vital Signs: Most Recent Vital Signs Temp Pulse Resp BP Pulse Ox 36.1 C L 80 16 146/81 H 100 05/22/23 10:04 05/22/23 10:04 05/22/23 10:04 05/22/23 10:04 05/22/23 10:04 Pain Score Most Recent Pain Score: Most Recent Pain Score Pain Level 0 05/22/23 10:04 Assessment Mental Status: Awake (Alert & Oriented to Patient Baseline) Airway and Respiratory Function: Patent airway with normal (patient baseline) respiratory exam Cardiovascular Function: Hemodynamically Stable Hydration Status: Adequately Hydrated Nausea & Vomiting: No Nausea or Vomiting Pain: Pt. Denies Any Pain Peripheral Nerve Block: Patient did not receive a nerve block
[2023-05-22 10:35] VITALS: BP 145/74; PULSE 67; RESP 16; TEMP 36.7; O2SAT 100
== END 2023-05-22 10:50 | disposition home or self-care (01) ==
LOC: SUR 08:04
PROVIDERS: PCP Family Medicine; Visit Provider Ophthalmology
PROC: (CPT 66984; principal; 2023-05-22 10:30)
DX: H25.12 Age-related nuclear cataract, left eye (principal); Z98.41 Cataract extraction status, right eye
CPT/HCPCS: 66984; 00123; V2632

== ENCOUNTER 2023-05-26 22:13 | Outpatient (CLI) | payer MEDICARE, OTHER, SELFPAY ==
[2023-05-26 15:36] LABS: HCT 30.3 % (36.0-46.0); HGB 9.6 g/dL (11.2-15.7); MCH 29.6 pg (27.0-33.0); MCHC 31.7 % (32.0-36.0); MCV 94 fL (80-95); MPV 10.3 fL (8.0-11.0); Platelet Count 220 10^3/uL (130-400); RBC 3.24 10^6/uL (3.93-5.22); RDW 14.9 % (11.7-14.6); RDW-SD 51.9 fL; WBC 5.07 10^3/uL (4.4-10.8)
[2023-05-26 16:51] LABS: Anion Gap 11.4 mmol/L (3-11); BUN 25 mg/dL (7-18); CO2 25.6 mmol/L (21.0-32.0); CREATININE 1.1 mg/dL (0.55-1.02); Calcium 9.8 mg/dL (8.5-10.1); Chloride 107 mmol/L (98-107); Estimated GFR 48.63 (mL/min/1.73m2); Glucose 100 mg/dL (74-106); Potassium 4.3 mmol/L (3.5-5.1); Sodium 144 mmol/L (136-145)
== END 2023-05-26 22:14 | disposition home or self-care (01) ==
LOC: LBO 22:20
PROVIDERS: PCP Family Medicine; Visit Provider Nurse Practitioner Family
DX: R29.6 Repeated falls (principal); R73.09 Other abnormal glucose
CPT/HCPCS: 36415; 80048; 85027; 83036

== ENCOUNTER 2023-09-12 08:59 | Emergency (ER) | payer MEDICARE, SELFPAY ==
[2023-09-12] VITALS (9 sets, daily range): BP systolic 172–220; BP diastolic 64–90; PULSE 67–89; RESP 16; TEMP 36; O2SAT 98–99
--- NOTE | 2023-09-12 09:00 | RT.EKG_ITS ---
APPROVED REPORT Exam: Resting ECG Reason for Exam: Dizzy Patient Location: E HR:81 bpm ECG Measurements Heart Rate 81 AXIS NE 272 P 3 QRSd 82 QRS 3 QT 382 T 32 QTc 444 Conclusion Sinus rhythm...normal P axis, V-rate 60- 99 Prolonged NE interval...NE >220, V-rate 50- 90 Narrow complex sinus rhythm at a rate of 81 with first-degree AV block and NE interval of 272 ms. Le ft axis deviation no signs of LVH based on voltage. No ST segment abnormalities. T wave flattening in lead III. No prior for comparison. No acute injury pattern.
--- NOTE | 2023-09-12 10:00 | DI.CT_ITS ---
Exam(s) CT HEAD CERVICAL SPINE WO EXAM: CT HEAD CERVICAL SPINE WO CLINICAL HISTORY: frequent falls, weakness, HI. TECHNIQUE: Imaging Protocol: Axial computed tomography images with coronal and sagittal reformatted images were created and reviewed COMPARISON: No exams were available for comparison FINDINGS: Head CT Ventricles and Extra axial spaces: Normal in size and morphology for the patient's age. Hemorrhage: None. Cerebral parenchyma: No evidence of mass or acute infarct. Midline shift: None. Brainstem/Cerebellum: Normal. Calvarium: Normal. Visualized Paranasal sinuses/Mastoids: Minimal mucosal thickening. Soft tissues: Unremarkable. Cervical Spine CT BONES: Vertebral body heights are maintained. Alignment is normal. There is no evidence of acute frac ture. Degenerative disc changes and facet degenerative changes are seen . SOFT TISSUES: No paraspinal hematoma. The airway appears intact. No pneumothorax is seen at the lung apices. IMPRESSION: Head CT: No acute abnormality. C-spine CT: Degenerative changes, no acute abnormality. RADIATION DOSE DELIVERED: Total DLP DATA REPOSITORY: All CT scans at this facility are submitted to the National Radiology Data Registry (NRDR) Dose Index Registry (DIR) with the [employer] ([employer]). RADIATION OPTIMIZATION: All CT scans at this facility use at least one of these dose optimization te chniques: automated exposure control; mA and/or kV adjustment per patient size (includes targeted exa ms where dose is matched to clinical indication); or iterative reconstruction.
--- NOTE | 2023-09-12 10:00 | DI.CT_ITS ---
Exam(s) CT CHEST/ABD/PEL W EXAM: CT CHEST/ABD/PEL W CLINICAL HISTORY: frequent falls, chest and abd tenderness, left hip. TECHNIQUE: Imaging Protocol: Axial computed tomography images with coronal and sagittal reformatted images were created and reviewed CONTRAST MATERIAL: Intravenous: Omnipaque 350 Contrast volume:100 ml Oral: no COMPARISON: CT ABD PELVIS WITH CONTRAST from 07/29/2011 CT THORACIC SPINE W from 07/16/2015 CT THORACIC SPINE WO CONTRAST from 07/16/2015 CR XR ribs LT w PA lat chest from 04/15/2018 FINDINGS: CHEST: Tracheobronchial tree: Patent where visualized. Pulmonary parenchyma: No consolidation or dominant measurable mass. Pleura: No effusion or pneumothorax. Lymph nodes: Within normal limits. Aorta: Thoracic portion non-dilated. Atherosclerotic changes. Heart: No pericardial effusion. Coronary artery calcifications. Mitral annular calcifications. Bones: Anterior flowing osteophytes along the lower thoracic vertebral body, similar to prior exam. No lytic or blastic lesions.No compression fractures. Soft tissues: Unremarkable. ABDOMEN and PELVIS: Liver: Normal density. No measurable mass. Gallbladder and biliary tract: No evidence of stones or wall thickening. No biliary dilatation. Pancreas: Atrophic. No abnormal calcifications or inflammatory process. Spleen: Normal. Kidneys: Normal size, contour and axis. No radiodense stones. No obstructive uropathy. No suspicious masses seen. Adrenal glands: No masses seen. Aorta: Abdominal portion non-dilated. Lymph nodes: Within normal limits. Soft tissues: Small fatty containing umbilical hernia. Mild posterior subcutaneous edema. No eviden ce of hematoma. Bladder: Unremarkable. Bowel: No obstruction or bowel wall thickening. Peritoneal cavity: No ascites. No focal collection. No mesenteric inflammatory response. Bones: Degenerative changes in the spine and hips. No evidence of fracture. Reproductive organs: Within normal limits. IMPRESSION: No acute abnormality in the chest, abdomen or pelvis.. RADIATION DOSE DELIVERED: Total DLP DATA REPOSITORY: All CT scans at this facility are submitted to the National Radiology Data Registry (NRDR) Dose Index Registry (DIR) with the [employer] (ACR). RADIATION OPTIMIZATION: All CT scans at this facility use at least one of these dose optimization te chniques: automated exposure control; mA and/or kV adjustment per patient size (includes targeted exa ms where dose is matched to clinical indication); or iterative reconstruction.
[2023-09-12 10:29] LABS: Abs Immature Grans 0.01 10^3/uL (0.0-0.06); Absolute Basophil Count 0.04 10^3/uL (0.0-0.2); Absolute Eosinophil Count 0.03 10^3/uL (0.0-0.7); Absolute Lymphocyte Count 1.28 10^3/uL (1.2-3.4); Absolute Monocyte Count 0.28 10^3/uL (0.1-0.8); Absolute Neutrophil Count 2.32 10^3/uL (1.2-6.7); Eosinophils % 0.8; HCT 30.8 % (36.0-46.0); HGB 9.9 g/dL (11.2-15.7); Immature Grans % 0.3; Lymphocytes % 32.3; MCH 29.8 pg (27.0-33.0); MCHC 32.1 % (32.0-36.0); MCV 93 fL (80-95); MPV 10.2 fL (8.0-11.0); Monocytes % 7.1; Neutrophils % 58.5; Platelet Count 204 10^3/uL (130-400); RBC 3.32 10^6/uL (3.93-5.22); RDW 15.2 % (11.7-14.6); RDW-SD 51.8 fL; WBC 3.96 10^3/uL (4.4-10.8)
[2023-09-12 10:41] LABS: Bilirubin Negative (Negative); Blood Negative (Negative); Clarity Clear (Clear); Glucose Negative (Negative); Ketones Negative (Negative); Leukocyte Esterase Negative (Negative); Nitrite Negative (Negative); Urobilinogen 0.2 mg/dL (Up to 0.2)
[2023-09-12 10:54] LABS: ALT 25 U/L (14-59); AST 22 U/L (15-37); Albumin 3.7 g/dL (3.4-5.0); Alkaline Phosphatase 77 U/L (46-116); BUN 26 mg/dL (7-18); Bilirubin, Total 0.4 mg/dL (0.2-1.0); CREATININE 1.1 mg/dL (0.55-1.02); Calcium 9.2 mg/dL (8.5-10.1); Chloride 107 mmol/L (98-107); Estimated GFR 48.63 (mL/min/1.73m2); Glucose 118 mg/dL (74-106); Lipase 17 U/L (16-77); Magnesium 2.2 mg/dL (1.8-2.4); Potassium 4.1 mmol/L (3.5-5.1); Sodium 144 mmol/L (136-145); TSH (W/Ref FT4) 2.92 uIU/mL (0.36-3.74); Total Protein 7.1 g/dL (6.4-8.2); Troponin I < 50 ng/L (< or =60)
--- NOTE | 2023-09-12 11:18 | ED.GENADUL_ITS ---
HPI General Date/Time Provider Initiated Documentation: 09/12/23 09:26 . HPI Narrative: This 88-year-old female presents with report weakness, frequent falls over the course of the past several months, worse in the past 2 weeks, having trouble getting around secondary to pain. Denies any nausea or vomiting, chest pain, shortness of breath. Unsure as to cause of her falls but does state her left leg gives out frequently. Denies any fever or chills. Lives independently reportedly. Denies known loss of consciousness or syncope. Denies palpitations. States at rest she feels fine but when she gets up to walk her symptoms present. Related Data Home Medications Medication Instructions Recorded Confirmed Jobst Stockings 01/29/13 06/23/23 multivitamin 1 tab PO DAILY 11/15/14 06/23/23 omeprazole 20 mg capsule,delayed 20 mg PO HS 05/07/23 06/23/23 release ferrous sulfate 325 mg (65 mg 325 mg PO DAILY #90 tabs 06/15/23 06/23/23 iron) tablet lisinopril 5 mg tablet 5 mg PO DAILY #10 tabs 09/12/23 Previous Rx's Medication Instructions Recorded ferrous sulfate 325 mg (65 mg 325 mg PO DAILY #90 tabs 06/15/23 iron) tablet lisinopril 5 mg tablet 5 mg PO DAILY #10 tabs 09/12/23 Allergies Allergy/AdvReac Type Severity Reaction Status Date / Time Tetanus Vaccines and Toxoid Allergy Mild LOCALIZED Verified 05/22/23 08:20 REACTION indomethacin AdvReac Unknown Verified 05/22/23 08:20 gavastatin Allergy Intermediate LE edema Uncoded 05/22/23 08:20 General Stated Complaint: Fall/Non TraumaCriteria VIDYA: 3 Course Vital Signs Vital signs: Vital Signs Temperature 36.0 C L 09/12/23 09:07 Pulse 75 09/12/23 09:07 Respiratory Rate 16 09/12/23 09:07 Blood Pressure 220/76 H 09/12/23 09:07 Pulse Oximetry 99 09/12/23 09:07 Temperature 36.0 C L 09/12/23 09:07 Temperature Source Temporal Artery Scan 09/12/23 09:07 Pulse 75 09/12/23 09:07 Respiratory Rate 16 09/12/23 09:07 Respiratory Effort Normal 09/12/23 09:43 Blood Pressure 220/76 H 09/12/23 09:07 Pulse Oximetry 99 09/12/23 09:07 Oxygen Delivery Method Room Air 09/12/23 09:07 Oxygen Flow Rate 0 09/12/23 09:07 Lab/Test Results Lab/Test Results: Laboratory Tests Range/Units 09/12/23 09/12/23 09/12/23 09:37 10:03 10:36 WBC (4.4-10.8) 10^3/uL 3.96 L RBC (3.93-5.22) 10^6/uL 3.32 L Hgb (11.2-15.7) g/dL 9.9 L Hct (36.0-46.0) % 30.8 L MCV (80-95) fL 93 MCH (27.0-33.0) pg 29.8 MCHC (32.0-36.0) % 32.1 RDW (11.7-14.6) % 15.2 H Plt Count (130-400) 10^3/uL 204 MPV (8.0-11.0) fL 10.2 Immature Gran % 0.3 Neutrophils % 58.5 Lymphocytes % 32.3 Monocytes % 7.1 Eosinophils % 0.8 Basophils % 1.0 Nucleated RBC % (0.0-0.3) % 0.0 Absolute Neutrophils (1.2-6.7) 10^3/uL 2.32 Absolute Lymphocytes (1.2-3.4) 10^3/uL 1.28 Absolute Monocytes (0.1-0.8) 10^3/uL 0.28 Absolute Eosinophils (0.0-0.7) 10^3/uL 0.03 Absolute Basophils (0.0-0.2) 10^3/uL 0.04 Sodium (136-145) mmol/L 144 Potassium (3.5-5.1) mmol/L 4.1 Chloride (98-107) mmol/L 107 Carbon Dioxide (21.0-32.0) mmol/L 26.0 Anion Gap (3-11) mmol/L 11.0 BUN (7-18) mg/dL 26 H Creatinine (0.55-1.02) mg/dL 1.1 H Est GFR (CKD-EPI 2020) (mL/min/1.73m2) 48.63 Glucose (74-106) mg/dL 118 H Calcium (8.5-10.1) mg/dL 9.2 Magnesium (1.8-2.4) mg/dL 2.2 Total Bilirubin (0.2-1.0) mg/dL 0.4 AST (15-37) U/L 22 ALT (14-59) U/L 25 Alkaline Phosphatase (46-116) U/L 77 Troponin I (< or =60) ng/L < 50 Cancelled Total Protein (6.4-8.2) g/dL 7.1 Albumin (3.4-5.0) g/dL 3.7 Lipase (16-77) U/L 17 Cancelled TSH (0.36-3.74) uIU/mL 2.92 Urine Color (Yellow) Yellow Urine Clarity (Clear) Clear Urine pH (5-8) 7.0 Ur Specific [place] (1.005-1.025) 1.020 Urine Protein (Negative) mg/dL Negative Urine Ketones (Negative) mg/dL Negative Urine Blood (Negative) Negative Urine Nitrite (Negative) Negative Urine Bilirubin (Negative) Negative Urine Urobilinogen (Up to 0.2) mg/dL 0.2 Ur Leukocyte Esterase (Negative) Negative Urine Glucose (Negative) mg/dL Negative Medical Decision Making This 88-year-old female presents with report of falls and weakness She is fully alert and oriented and has a nonfocal neurological exam, pupils equal round reactive to light and accommodation, afebrile and nontoxic Chronic anemia, unchanged when compared to prior, CT chest abdomen pelvis without acute abnormality, CT head and cervical spine without acute abnormality, patient ambulatory with steady gait with her walker Negative orthostasis Negative [id number], negative heel owens, GCS 15, cranial nerves II through XII intact Abdominal tenderness, lungs clear to auscultation bilaterally Blood pressure is elevated I suspect were elevated that it has been in the past, will order lisinopril and patient will need reassessment by her primary care physician this upcoming week This time I think patient is stable for discharge home but I have filled out home health this patient is having quite a bit of difficulty getting around in her home and I suspect she has some physical deconditioning and would benefit from physical therapy, she is unable to operate her vehicle and uses a walker Troponin negative, EKG negative, please see attendings documentation [id number] ultrasound Return precautions were reviewed in detail and patient and family expressed understanding Quality:SDOH Health Related Social Needs: No Data to Display PFSH All Active Problems (Updated 09/12/23 @ 13:46 by MORGAN Macdonald) Chronic anemia (Acute) Gait instability (Acute) Light-headed feeling (Acute) Malaise (Acute) Iron deficiency anemia (Chronic) started on ferrous sulfate 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 Ovalles managed with cortisone - helpful. Elevated blood pressure reading (Chronic) low readings at home. 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 Sister , 80 Cancer Sister No problems noted. Brother No problems noted. Son Cancer Son No problems noted. Son No problems noted. Daughter No problems noted. Daughter No problems noted. Daughter No problems noted. Social History Smoking/Tobacco Use Status: Never Second Hand Exposure: No Smoking risk assessment performed?: Yes Alcohol Intake: never Drug use: Never Substance use type: does not use Caregiver/Support person: No Household members: none Housing: house Number of Children: 6 Communication Needs: None Education Level: high school Details: [employer] Do you need help understanding health information?: Rarely current occupation: retired [employer] from [employer] Pets and animals: No Sexually active: No Do you think of yourself as: straight/heterosexual Current gender identity: decline to answer How often do you talk on the phone with friends or family?: decline to answer How often do you get together with friends or relatives?: decline to answer How often do you attend mormonism or islam services?: decline to answer Do you belong to any clubs or organized social groups?: decline to answer What type of physical activity do you participate in: walking and weight lifting Duration: 45-60 minutes/day Frequency: daily Estephania/Pentecostal: No preference Special estephania needs: No Seatbelt use: always Drive intox or ride w/intox auto transport driver: No Do you feel safe at home: Yes Do you feel safe in your relationship?: Yes Discharge Plan Disposition Patient Disposition: Home Condition: Stable Discharge Details Clinical Impression: Malaise, Light-headed feeling, Gait instability, Chronic anemia Primary Care Provider: Suzie Cevallos ED Provider: Jody Jacobs Home Meds and New Rx's Prescriptions: New lisinopril 5 mg tablet 5 mg PO DAILY Qty: 10 0RF Continued JOBST STOCKINGS Rx Instructions: 1 PAIR BILATERAL THIGH HIGH 20 MM HG JOBST STOCKINGS DX: VENOUS STASIS EDEMA ferrous sulfate 325 mg (65 mg iron) tablet 325 mg PO DAILY Qty: 90 3RF Rx Instructions: Take 1 tablet daily with your vitamin c multivitamin 1 EACH capsule 1 tab PO DAILY omeprazole 20 mg capsule,delayed release(DR/EC) 20 mg PO HS Rx Instructions: 1 CAP DAILY Discharge Instructions Instructions: Hypertension (ED), Anemia (ED) Additional Instructions: Use your walker with all ambulation I placed a referral for physical therapy for assessment in your home Please follow-up with your doctor next week, I am placing you on the list for urgent reassessment I have added lisinopril to your regimen, this is a low dose medication for high blood pressure, I do recommend checking your blood pressure once a day while you take this medication please refer to enclosed packet information Please return earlier should you have new or worsening complaints Referrals: Suzie Cevallos MD [Primary Care Provider] - 2 days
[2023-09-12] MEDS: Normal Saline - Diluent 50 ML VIAL IJ (11:34)
[2023-09-12] MEDS: Omnipaque 350 MG/ML 100 ML BTL IJ (11:35)
--- NOTE | 2023-09-12 12:38 | ED.PROG_ITS ---
Date of service: 09/12/23 Time of Service: 12:38 Medical Decision Making I participated in this patient's care with her advanced practitioner. Please see her separate note for details. I completed a limited bedside echocardiogram which showed concern for mildly decreased EF. She had no B-lines to suggest acu te heart failure. Patient will likely benefit from an updated echocardiogram but I do not feel that this cannot be done as an inpatient given that she passed ambulatory trial in the emergency department. Quality:SDOH Health Related Social Needs: No Data to Display Discharge Plan Disposition Patient Disposition: Home Condition: Stable Discharge Details Clinical Impression: Malaise, Light-headed feeling, Gait instability, Chronic anemia Primary Care Provider: Suzie Cevallos ED Provider: Jody Jacobs Home Meds and New Rx's Prescriptions: New lisinopril 5 mg tablet 5 mg PO DAILY Qty: 10 0RF Continued JOBST STOCKINGS Rx Instructions: 1 PAIR BILATERAL THIGH HIGH 20 MM HG JOBST STOCKINGS DX: VENOUS STASIS EDEMA ferrous sulfate 325 mg (65 mg iron) tablet 325 mg PO DAILY Qty: 90 3RF Rx Instructions: Take 1 tablet daily with your vitamin c multivitamin 1 EACH capsule 1 tab PO DAILY omeprazole 20 mg capsule,delayed release(DR/EC) 20 mg PO HS Rx Instructions: 1 CAP DAILY Discharge Instructions Instructions: Hypertension (ED), Anemia (ED) Additional Instructions: Use your walker with all ambulation I placed a referral for physical therapy for assessment in your home Please follow-up with your doctor next week, I am placing you on the list for urgent reassessment I have added lisinopril to your regimen, this is a low dose medication for high blood pressure, I do recommend checking your blood pressure once a day while you take this medication please refer to enclosed packet information Please return earlier should you have new or worsening complaints Referrals: Suzie Cevallos MD [Primary Care Provider] - 2 days POCUS Exam (ED) Limited Cardiac Exam DATE OF EXAM: 09/12/23 TIME OF EXAM: 12:39 PROVIDER THAT PERFORMED THE STUDY: Kai Waterman IS THIS A REPEAT EXAM DURING THIS ENCOUNTER: no REASON FOR EXAM: Other indication: Elevated blood pressure VISUALIZED STRUCTURES: Four Chambers, Left ventricle, LVOT, Interventricular septum and Other structure: Lungs bilaterally VIEW OBTAINED: Apical 4-Chamber, Parasternal long-axis and Subxiphoid PERTINENT FINDINGS/IMPRESSION: LV dysfunction and Other Aortic outflow track less than 4 cm, moderate squeeze, RV less than LV, no significant pericardial effusion, no B-lines bilaterally. ; No pericardial effusion DIFFERENTIAL DIAGNOSES: Aortic outflow track less than 4 cm, moderate squeeze, RV less than LV, no significant pericardial effusion, no B-lines bilaterally. Exam complete
--- NOTE | 2023-09-12 12:59 | DI.VRAD_ITS ---
PROCEDURE INFORMATION: Exam: CT Head Without Contrast Exam date and time: 09/12/2023 11:23 AM Age: 88 years old Clinical indication: Other: Frequent falls, weakness, hi TECHNIQUE: Imaging protocol: Computed tomography of the head without contrast. Radiation optimization: All CT scans at this facility use at least one of these dose optimization techniques: automated exposure control; mA and/or kV adjustment per patient size (includes targeted exams where dose is matched to clinical indication); or iterative reconstruction. COMPARISON: No relevant prior studies available. FINDINGS: Brain: No acute intracranial hemorrhage.. There is mild diffuse heterogeneity of the white matter attenuation, consistent with chronic white matter ischemic changes. Mild cerebral atrophy Cerebral ventricles: No ventriculomegaly. Paranasal sinuses: Mild mucoperiosteal thickening in the right maxillary sinus and ethmoid sinuses may represent mild sinusitis Mastoid air cells: Visualized mastoid air cells are well aerated. Bones/joints: Unremarkable. No acute fracture. Soft tissues: Unremarkable. IMPRESSION: No acute intracranial hemorrhage.. PROCEDURE INFORMATION: Exam: CT Cervical Spine Without Contrast Exam date and time: 09/12/2023 11:23 AM Age: 88 years old Clinical indication: Other: Frequent falls, weakness, hi TECHNIQUE: Imaging protocol: Computed tomography of the cervical spine without contrast. Radiation optimization: All CT scans at this facility use at least one of these dose optimization techniques: automated exposure control; mA and/or kV adjustment per patient size (includes targeted exams where dose is matched to clinical indication); or iterative reconstruction. COMPARISON: CR XR ribs LT w PA lat chest 04/15/2018 1:23 PM FINDINGS: Bones/joints: No acute fracture of the cervical spine. No subluxation or dislocation of the cervical spine. Intervertebral disc space narrowing C5/C6 may represent degenerative disc disease.. Anterior osteophyte formation C5/C6. Posterior osteophyte formation C5/C6. Degenerative changes in the facets at multiple levels. Degenerative changes at C1/C2. Degenerative changes in the temporomandibular joints bilaterally Lungs: Lung apices are normal. Thyroid: The thyroid is unremarkable Soft tissues: Unremarkable. IMPRESSION: 1. No acute fracture of the cervical spine. 2. No subluxation or dislocation of the cervical spine. 3. Intervertebral disc space narrowing C5/C6 may represent degenerative disc disease.. Dictated and Authenticated by: Cirilo Gonzalez MD. Ordering:AUGIE Vera MD
--- NOTE | 2023-09-12 13:24 | DI.VRAD_ITS ---
PROCEDURE INFORMATION: Exam: CT Chest With Contrast; Diagnostic Exam date and time: 09/12/2023 11:32 AM Age: 88 years old Clinical indication: Other: Frequent falls, chest/abd tenderness left hip TECHNIQUE: Imaging protocol: Diagnostic computed tomography of the chest with contrast. Radiation optimization: All CT scans at this facility use at least one of these dose optimization techniques: automated exposure control; mA and/or kV adjustment per patient size (includes targeted exams where dose is matched to clinical indication); or iterative reconstruction. Contrast material: OMNI 350; Contrast volume: 100 ml; Contrast route: INTRAVENOUS (IV); COMPARISON: CR XR ribs LT w PA lat chest 15/04/2018 13:23 FINDINGS: Lungs: Unremarkable. No consolidation. No masses. Pleural spaces: Unremarkable. No pneumothorax. No pleural effusion. Heart: Cardiomegaly. Coronary arteries: Calcified coronary arteries. Lymph nodes: Unremarkable. No enlarged lymph nodes. Vasculature: Atherosclerotic disease. Diaphragm: Hiatal hernia. Bones/joints: Multilevel degenerative scoliotic changes of the thoracic spine. Degenerative changes of the shoulders. Decreased bone mineralization. Anterior fusion of multiple lower thoracic vertebra. Soft tissues: Dependent edema in the soft tissues of the back. IMPRESSION: 1. No acute findings. 2. Additional findings as discussed above. PROCEDURE INFORMATION: Exam: CT Abdomen And Pelvis With Contrast Exam date and time: 09/12/2023 11:32 AM Age: 88 years old Clinical indication: Other: Frequent falls, chest/abd tenderness left hip TECHNIQUE: Imaging protocol: Computed tomography of the abdomen and pelvis with contrast. Radiation optimization: All CT scans at this facility use at least one of these dose optimization techniques: automated exposure control; mA and/or kV adjustment per patient size (includes targeted exams where dose is matched to clinical indication); or iterative reconstruction. Contrast material: OMNI 350; Contrast volume: 100 ml; Contrast route: INTRAVENOUS (IV); COMPARISON: CR XR lumbar spine complete 05/08/2019 11:47 FINDINGS: Liver: Normal. No mass. Gallbladder and bile ducts: Normal. No calcified stones. No ductal dilation. Pancreas: Fatty infiltration of the pancreas. Spleen: Normal. No splenomegaly. Adrenal glands: Normal. No mass. Kidneys and ureters: Normal. No hydronephrosis. Stomach and bowel: Unremarkable. No obstruction. No mucosal thickening. Appendix: No evidence of appendicitis. Intraperitoneal space: Unremarkable. No free air. No significant fluid collection. Vasculature: Atherosclerotic disease. Lymph nodes: Unremarkable. No enlarged lymph nodes. Urinary bladder: Unremarkable as visualized. Reproductive: Unremarkable as visualized. Bones/joints: Multilevel degenerative scoliotic changes of the visualized thoracic and lumbar spine. Degenerative changes of the hips more advanced on the left. No evidence for acute bony injury. Decreased bone mineralization. Soft tissues: Small umbilical hernia. Infiltration the soft tissues of the posterior back. IMPRESSION: 1. No acute findings. 2. Additional findings as discussed above. Dictated and Authenticated by: Florina Marsh MD. Ordering:AUGIE Vera MD
[2023-09-12 13:29] LABS: Troponin I < 50 ng/L (< or =60)
--- NOTE | 2023-09-12 13:44 | NUR.NOTE ---
Nursing Note: Ambulatory trial for this patient performed, ambulated complete square around dept with wheeled walker without difficulty. Pt denied dizziness and feelings of unsteady. States she feels great. States that at home she has a better walker to use. Provider Jody MORA saw pt ambulate, and this RN notified her of pts thoughts on ambulatory trial.
--- NOTE | 2023-09-12 15:13 | NUR.NOTE ---
Referral faxed to [facility] for a recheck on weakness sometime this week with her Primary Care Provider.
== END 2023-09-12 13:56 | disposition home or self-care (01) ==
PROVIDERS: Emergency Provider Physician Assistant; PCP Family Medicine
DX: R53.81 Other malaise (principal); R53.1 Weakness; R42 Dizziness and giddiness; R26.81 Unsteadiness on feet; D64.9 Anemia, unspecified; Z91.81 History of falling
CPT/HCPCS: 00123; 36415; 74177; 80053; 83690; 93005; 93308; 99285; 70450; 71260; 72125; 81003; 83735; 84443; 84484; 85025; 93010; 99284; J3490

== ENCOUNTER 2023-10-14 04:12 | Outpatient (CLI) | payer MEDICARE, SELFPAY ==
[2023-10-14 13:07] LABS: Ferritin 48 ng/mL (8-252); Vitamin B12 344 pg/mL (193-986)
[2023-10-14 13:10] LABS: Folate > 20.0 ng/mL (8.6-20.0)
== END 2023-10-14 04:13 | disposition home or self-care (01) ==
LOC: LOS 04:13
PROVIDERS: PCP Family Medicine; Visit Provider Family Medicine
DX: N18.30 Chronic kidney disease, stage 3 unspecified; E66.9 Obesity, unspecified
CPT/HCPCS: 36415; 82306; 82607; 82728; 82746

== ENCOUNTER 2023-11-21 04:58 | Observation (INO) | payer MEDICARE, SELFPAY ==
[2023-11-21] VITALS (51 sets, daily range): BP systolic 94–195; BP diastolic 51–118; PULSE 59–106; RESP 10–29; TEMP 36.3–36.6; O2SAT 95–100
--- NOTE | 2023-11-21 04:45 | RT.EKG_ITS ---
APPROVED REPORT Exam: Resting ECG Reason for Exam: dizziness Patient Location: E HR:77 bpm ECG Measurements Heart Rate 77 AXIS IN [id number] P 0 QRSd 82 QRS 28 QT 402 T 60 QTc 456 Conclusion Sinus rhythm...normal P axis, V-rate 60- 99 Atrial premature complexes...SV complexes w/ short R-R intvls
--- NOTE | 2023-11-21 05:00 | RT.EKG_ITS ---
APPROVED REPORT Exam: Resting ECG Reason for Exam: dizzy/chest pain Patient Location: E HR:83 bpm ECG Measurements Heart Rate 83 AXIS KS [id number] P 0 QRSd 81 QRS 11 QT 402 T 38 QTc 482 Conclusion Sinus rhythm...normal P axis, V-rate 60- 99
[2023-11-21] MEDS: diazePAM 10 MG/2 ML SYR 2 MG IVP (05:26)
[2023-11-21] MEDS: Normal Saline 1,000 ML 500 ML IV (05:27)
[2023-11-21 05:30] LABS: Absolute Basophil Count 0.03 10^3/uL (0.0-0.2); Absolute Eosinophil Count 0.06 10^3/uL (0.0-0.7); Absolute Lymphocyte Count 1.35 10^3/uL (1.2-3.4); Absolute Monocyte Count 0.25 10^3/uL (0.1-0.8); Absolute Neutrophil Count 2.16 10^3/uL (1.2-6.7); Basophils % 0.8; Eosinophils % 1.6; HCT 31.4 % (36.0-46.0); HGB 10.2 g/dL (11.2-15.7); Lymphocytes % 35.1; MCH 30.7 pg (27.0-33.0); MCHC 32.5 % (32.0-36.0); MCV 95 fL (80-95); Monocytes % 6.5; Platelet Count 180 10^3/uL (130-400); RBC 3.32 10^6/uL (3.93-5.22); RDW 14.3 % (11.7-14.6); RDW-SD 49.8 fL; WBC 3.85 10^3/uL (4.4-10.8)
--- NOTE | 2023-11-21 05:44 | ED.GENADUL_ITS ---
Discharge Plan Disposition Patient Disposition: Admit to [facility] Condition: Fair Discharge Details Chief Complaint: Dizzy/Sync Clinical Impression: Vertigo, Weakness Primary Care Provider: Suzie Cevallos ED Provider: Jose Gilbert Home Meds and New Rx's Prescriptions: No Action lisinopril 5 mg tablet 5 mg PO DAILY Qty: 30 2RF meclizine 12.5 mg tablet 12.5 mg PO Q8H PRN Qty: 30 0RF Rx Instructions: 1 TAB Q8HR PRN FOR VERTIGO. ferrous sulfate 325 mg (65 mg iron) tablet 325 mg PO DAILY Qty: 90 3RF Rx Instructions: Take 1 tablet daily with your vitamin c multivitamin 1 EACH capsule 1 tab PO DAILY omeprazole 20 mg capsule,delayed release(DR/EC) 20 mg PO HS Rx Instructions: 1 CAP DAILY HPI General Date/Time Provider Initiated Documentation: 11/21/23 05:00 . HPI Narrative: The patient is an 88-year-old female, with a past medical history significant for iron deficiency anemia, hypertension, gastroesophageal reflux disease, dizziness, increasing weakness with near syncope for which she was recently seen several times both in the emergency room and through primary care, presents to the emergency department this evening complaining of intense dizziness, nausea, and weakness with any amount of movement while lying in bed. The patient took a meclizine tablet which did not seem to help alleviate any of her symptoms. When EMS responded, they reported the patient had significant difficulty getting out of her bed and with transferring to the stretcher. They described her as having her legs give out and being unable to stand on her own. The patient reports that she had significant nausea with movement attempts. She tells me now that she does not feel particularly dizzy or nauseated as long as she holds her head still, but any form of movement, sitting up, or closing her eyes causes the dizziness to return and become quite intense. Related Data Home Medications Medication Instructions Recorded Confirmed multivitamin 1 tab PO DAILY 11/15/14 11/21/23 omeprazole 20 mg capsule,delayed 20 mg PO HS 05/07/23 11/21/23 release ferrous sulfate 325 mg (65 mg 325 mg PO DAILY #90 tabs 06/15/23 11/21/23 iron) tablet lisinopril 5 mg tablet 5 mg PO DAILY #30 tabs 09/16/23 11/21/23 meclizine 12.5 mg tablet 12.5 mg PO Q8H PRN #30 tab-caps 10/16/23 11/21/23 Previous Rx's Medication Instructions Recorded ferrous sulfate 325 mg (65 mg 325 mg PO DAILY #90 tabs 06/15/23 iron) tablet lisinopril 5 mg tablet 5 mg PO DAILY #30 tabs 09/16/23 meclizine 12.5 mg tablet 12.5 mg PO Q8H PRN #30 tab-caps 10/16/23 Allergies Allergy/AdvReac Type Severity Reaction Status Date / Time Tetanus Vaccines and Toxoid Allergy Severe Swelling/Ed Verified 11/21/23 05:20 jason indomethacin AdvReac Unknown Skin Rash Verified 11/21/23 05:20 gavastatin Allergy Intermediate LE edema Uncoded 11/21/23 05:20 General Stated Complaint: Dizzy/Sync VIDYA: 3 Exam Const General: cooperative, healthy appearing, no acute distress and not ill appearing Eyes General: appearance normal, both eyes and all related structures Pupils: PERRL EOM: EOM intact bilaterally and nystagmus (There is a left beating nystagmus that extinguishes quickly) Neck Other: The neck is nontender. There are no external areas of swelling or jugular venous distention. Resp Effort & Inspection: normal respiratory effort and able to speak in complete sentences Auscultation: clear to auscultation bilaterally Cardio Rate: regular rate Rhythm: abnormal rhythm regularly irregular Heart Sounds: murmur systolic late, decrescendo and IV/ GI Inspection: normal to inspection Palpation: soft Auscultation: normal bowel sounds Skin General skin exam: no rashes or lesions noted and pallor Neuro Cranial Nerves: CN's II-XI intact bilaterally and nystagmus (There is a left beating nystagmus that extinguishes quickly) Motor: muscle tone normal throughout, strength 5/5 throughout, no pronator drift and no movement abnormalities noted Sensory Exam: no sensory deficits noted Extrem Other: There is 2-3+ nonpitting edema in the bilateral lower extremities, no there is no cyanosis. There are palpable pulses in all 4 distal extremities. Course Vital Signs Vital signs: Vital Signs Temperature 36.3 C L 11/21/23 04:57 Pulse 97 H 11/21/23 04:57 Respiratory Rate 18 11/21/23 04:57 Blood Pressure 186/88 H 04/20/24 04:57 Pulse Oximetry 99 11/21/23 04:57 Temperature 36.3 C L 11/21/23 04:57 Pulse 78 11/21/23 05:16 Pulse 81 11/21/23 05:30 Respiratory Rate 14 11/21/23 05:30 Respiratory Effort Normal 11/21/23 05:03 Respiratory Depth Normal 11/21/23 05:03 Respiratory Pattern Normal 11/21/23 05:03 Blood Pressure 180/71 H 11/21/23 05:16 Blood Pressure Mean 109 11/21/23 05:16 Pulse Oximetry 95 11/21/23 05:30 Pain Level 0 11/21/23 04:57 Lab/Test Results Lab/Test Results: Laboratory Tests Range/Units 11/21/23 05:10 WBC (4.4-10.8) 10^3/uL 3.85 L RBC (3.93-5.22) 10^6/uL 3.32 L Hgb (11.2-15.7) g/dL 10.2 L Hct (36.0-46.0) % 31.4 L MCV (80-95) fL 95 MCH (27.0-33.0) pg 30.7 MCHC (32.0-36.0) % 32.5 RDW (11.7-14.6) % 14.3 Plt Count (130-400) 10^3/uL 180 MPV (8.0-11.0) fL 11.0 Immature Gran % 0.0 Neutrophils % 56.0 Lymphocytes % 35.1 Monocytes % 6.5 Eosinophils % 1.6 Basophils % 0.8 Nucleated RBC % (0.0-0.3) % 0.0 Absolute Neutrophils (1.2-6.7) 10^3/uL 2.16 Absolute Lymphocytes (1.2-3.4) 10^3/uL 1.35 Absolute Monocytes (0.1-0.8) 10^3/uL 0.25 Absolute Eosinophils (0.0-0.7) 10^3/uL 0.06 Absolute Basophils (0.0-0.2) 10^3/uL 0.03 Medical Decision Making The patient was seen and examined. This appears to represent likely some form of peripheral, or at least positional vertigo. The patient very clearly describes a sensation of spinning with associated nausea with movement of her body or her head. There is limited evidence of nystagmus on the clinical examination. I do not think that there are other features that be consistent with a stroke or CVA. The patient lacks any motor weakness, pronator drift, sensory changes, or other cranial nerve deficits. 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 During my initial examination, the patient declined to stand up noting intense dizziness and nausea when just sitting up. The patient was given 2 mg of IV Valium here in the emergency room and some IV fluids to see if this improves her symptoms. Laboratory tests are pending to exclude other possible etiologies. The daughter has come into the emergency room and reports that this is the most symptomatic that her mother has been. Review of the patient's records reveals that she seems to be having an accelerating course of increasing episodes of dizziness, near syncope, and generalized weakness at home. Unless there is a significant improvement in the patient's functional status, she will likely require admission for management of her vertiginous symptoms with nausea, PT/OT evaluation, supportive care supportive care as a bridge to disposition planning for either increased services at home or potentially a short stay in rehab. 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 Ovalles managed with cortisone - helpful. 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 Sister , 80 Cancer Sister No problems noted. Brother No problems noted. Son Cancer Son No problems noted. Son No problems noted. Daughter No problems noted. Daughter No problems noted. Daughter No problems noted. Social History Smoking/Tobacco Use Status: Never Second Hand Exposure: No Smoking risk assessment performed?: Yes Alcohol Intake: never Drug use: Never Substance use type: does not use Caregiver/Support person: No Household members: none Housing: house Number of Children: 6 Communication Needs: None Education Level: high school Details: [employer] Do you need help understanding health information?: Rarely current occupation: retired [employer] from [employer] Pets and animals: No Sexually active: No Do you think of yourself as: straight/heterosexual Current gender identity: decline to answer How often do you talk on the phone with friends or family?: decline to answer How often do you get together with friends or relatives?: decline to answer How often do you attend sikh or pentecostal services?: decline to answer Do you belong to any clubs or organized social groups?: decline to answer What type of physical activity do you participate in: walking and weight lifting Duration: 45-60 minutes/day Frequency: daily Estephania/Congregation: No preference Special estephania needs: No Seatbelt use: always Drive intox or ride w/intox combine driver: No Do you feel safe at home: Yes Do you feel safe in your relationship?: Yes
[2023-11-21 05:50] LABS: ALT 25 U/L (14-59); AST 25 U/L (15-37); Albumin 3.5 g/dL (3.4-5.0); Alkaline Phosphatase 88 U/L (46-116); Anion Gap 10.6 mmol/L (3-11); BUN 26 mg/dL (7-18); Bilirubin, Total 0.4 mg/dL (0.2-1.0); CO2 24.4 mmol/L (21.0-32.0); CREATININE 1.1 mg/dL (0.55-1.02); Chloride 109 mmol/L (98-107); Estimated GFR 48.63 (mL/min/1.73m2); Glucose 136 mg/dL (74-106); Magnesium 2.1 mg/dL (1.8-2.4); Potassium 4.3 mmol/L (3.5-5.1); Sodium 144 mmol/L (136-145); Total Protein 6.6 g/dL (6.4-8.2); Troponin I < 50 ng/L (< or =60)
[2023-11-21 06:47] LABS: Bilirubin Negative (Negative); Blood Negative (Negative); Clarity Clear (Clear); Glucose Negative (Negative); Ketones Negative (Negative); Leukocyte Esterase Trace (Negative); Nitrite Negative (Negative); Urobilinogen 0.2 mg/dL (Up to 0.2)
[2023-11-21 06:56] LABS: Bacteria Rare HPF (Negative); C & S Indicated? No/Sq. Contamination; Casts Negative LPF (Negative); Crystals Negative HPF (Negative); Epithelial Cells Moderate HPF (Negative); Mucus Negative (Negative); RBC Negative HPF (0-2)
[2023-11-21 08:39] LABS: Troponin I < 50 ng/L (< or =60)
[2023-11-21] MEDS: Enoxaparin 40 MG/0.4 ML SYR SC (10:51)
--- NOTE | 2023-11-21 11:17 | IN_ITS ---
Date of service: 11/21/23 Time of Service: 10:15 PT Notes Visit Reasons: weakness,vertigo,ambulatory dysfun Inpatient Physical Therapy Evaluation Date: November 21, 2023 Referring Doctor: Kai Rhodes PT Orders: PT CONSULT: Fall safety assessment Precautions: Standard, falls Patient Profile/Admitting Diagnosis: Toshia is an 88 year old female referred for PT evaluation and treatment for fall safety assessment due to ambulatory dysfunction, weakness and possible vertigo. PMHX: (Updated 11/21/23 @ 07:36 by Jose Gilbert MD) Weakness (Acute) Vertigo (Acute) Lymphedema (Acute) Essential hypertension (Acute) Insomnia due to medical condition (Acute) Iron deficiency anemia (Chronic) started on ferrous sulfateSciatica (Chronic 07/02/03) lumbar spine DJD, right sciatica Osteoarthritis (Chronic) Obesity (Chronic 08/05/12) Hyperlipidemia (Chronic) Left foot pain (Chronic) Dr. 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 Colon polyp (08/17/14) [facility], October 2009 3mm tubular adenoma Murmur, cardiac (10/26/17) had negative cardiac echo 11/2017Conductive hearing loss, external ear (03/29/15) Surgical History (Updated 09/16/23 @ 15:39 by Suzie Cevallos MD) S/P cataract extraction (05/2023) Replacement of total knee joint 1996 RIGHT 2002 LEFTRotator Cuff Repair KNEE FUSION 11/2014Biopsy of breast Arthroplasty TEMPOROMANDIBULAR Social History/Home Situation: Toshia lives alone in a private home. Prior to admission reports independence with all ADLs. Does not drive. Relies on her children who live close by for assistance with this to and from doctors appointments. Utilizes a rollator walker for all ambulation. Has a ramp to enter her home once in her home 1 level living. Does utilize adaptive strap to assist her lower extremities in and out of the car as well as in and out of bed. Current Functional Limitations: Decreased mobility, unable to ambulate due to extreme weakness, increased dizziness Equipment Owned/DME: Ramp to enter home. Multiple grab bars in bathroom to assist with independent showering and use of toilet. Rollator walker for all ambulation. Subjective: Toshia notes she awoken in middle of the night to go to the bathroom. When she got up to go to the bathroom felt very unsteady and had increased dizziness with ambulation. Called her daughters in which called 911 for transport to hospital emergency department. Agreeable to PT evaluation and treatment this morning. Is not having any dizziness lying in bed. Notes her dizziness gets worse upon standing. And feels like she is standing on blocks. Is able to turn her head without any dizziness noted. Notes that her LE swelling has been getting worse slowly over time. She has had past lymphedema PT and has utilized a pneumatic pump at home however has had to discontinued over the past few days due to increased swelling. Objective: General Observation: Catheter, IV access Mental Status: Alert and oriented x 3 Pain: Declines any pain Vital Signs: Blood pressure 161/84 mmHg heart rate 80 bpm and O2 saturation on room air 100% ROM: Right Upper Extremity: Limited flexion to 90 degrees, ER 30 degrees, WFL elbow, forearm and wrist ROM Left Upper Extremity: Demonstrates WFL AROM L UE Right Lower Extremity: Hip flexion 100 degrees, knee flexion limited to 45 degrees, knee extension lacking 5 degrees. DF neutral Left Lower Extremity: Hip flexion 105 degrees, knee flexion limited to 80 degrees, knee extension lacking 5 degrees, DF neutral Strength: Right Upper Extremity: Shoulder flexion 4-/5, elbow flexion 4/5, good functional grasp Left Upper Extremity: Shoulder flexion 4/5, elbow flexion 4/5, good functional grasp Right Lower Extremity: hip flexion 3+/5, knee flexion 4-/5, knee extension 4-/5, DF 4/5 Left Lower Extremity: hip flexion 4-/5, knee flexion 4/5, knee extension 4/5, DF 4/5 Bed Mobility/Transfers: Supine to sit: Supervision Sit-supine Supervision Sit-stand: minAx1 with use of FWW Stand-sit: supervision with cueing for proper hand placement Gait: Unable to assess. Patient did not feel comfortable or strong enough to move away from bed. Was able to stand bedside x2 minutes with manageable symptoms CGA. Did not feel comfortable marching in place due to fear of legs giving out even with use of FWW. Balance: Static Sitting: Normal Dynamic Sitting: Good Static Standing: Fair Dynamic Standing: Poor Special Tests: Mobility Limitations Standardized Measure [facility] AM-PAC 6 clicks Basic Mobility Inpatient Short Form: Raw Score: 15 CMS Score: 58% Informed Consent/Education: Patient instructed in purpose of PT consult and plan of care. Assessment: Patient is a 88 year old female referred to physical therapy services with the diagnosis of weakness, vertigo, ambulatory dysfunction. Patient presents with clinical signs and symptoms consistent with LE swelling with history of lymphedema, impaired joint mobility with diminished ROM bilateral knees history of TKA, impaired motor function and muscle performance resulting in global LE weakness, gait dysfunction along with poor standing balance, as demonstrated by the following impairment level findings: decreased activity tolerance, inability to ambulate, LE swelling, decreased balance, LE weakness. Patient is assessed as a Moderate 39638 complexity based on the following: History: As above Examination: As above Presentation: Evolving Decision Making: Moderate Goals: Goals X1 week 1. Supine-Sit independent 2. Sit-Supine independent 3. Sit-Stand independent with FWW 4. Stand-Sit independent 5. Bed-Chair supervision with use of FWW 6. Chair-Bed supervision with use of FWW 7. Gait 300 ft with supervision and use of FWW 8. Improved standing balance to good Plan of Care/Treatment Plan: 1-2x/day, 7 days/week x 1 week. Plan of care has been reviewed with the [employer] providing the service under Physical Therapy direction. Initiate Physical Therapy intervention for strengthening, bed mobility, transfers, gait, stairs, balance training, use of assistive device. DISCHARGE RECOMMENDATIONS: Home with Home Health PT TREATMENT CODE/TIME: 87664 IE 30 minutes 10:15-10:45 am [facility] Please sign an return this page within 30 days if you agree with the above POC. Thank you! Physician Signature Date [facility] Disclaimer: This note was created using [employer] voice recognition software. It was reviewed for major content. However, there may be multiple small discrepancies and errors due to the voice recognition aspects of the software.
--- NOTE | 2023-11-21 13:45 | W.PM.HP.N ---
Date of service: 11/21/23 Time of Service: 13:49 Assessment and Plan Assessment and plan (1) Vertigo: Status: Acute Assessment and plan: The patient's most acute symptoms are consistent with benign paroxysmal posititional vertigo, which was the assessment in the emergency room. Her presenation is not suggestive of posterior CVA, meniere's, vestibulitis, or other causes of vertigo. These symptoms are improving at this point after a single dose of diazepam, so I will not continue to treat with sedating medications. Unfortunately, the addition of this severe vertigo to her subacute progressive weakness has left her unable to walk and thus unsafe for discharge. - admitted for observation - PT consult for safety assessment (2) Weakness: Status: Acute Assessment and plan: I am concerned with Ms. Pierre's ongoing weakness that seems to be progressive over the past 6 months or so with recurrent falls and a decrease in exercise tolerance. She does have an impressive murmur. Her last formal echocardiogram was reassuring in 2018, but the POCUS in the ED 09/12/23 was concerning for newly diminished ejection fraction. Given these findings I am concerned for a cardiac cause of her weakness. Troponin and EKG not c/w acute ischemia. I will add telemetry monitoring while she is here and we will get an echocardiogram if she stays until Thursday. Otherwise this should get done as outpatient TONY. (3) Essential hypertension: Status: Acute Assessment and plan: BP has been stable, continue outpatient lisinopril (4) Iron deficiency anemia: Status: Chronic Assessment and plan: This was noted last fall, and iron was started, but has not had a GI work up for blood loss. 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 This may be related to her slowly progressive weakness, poor appetite, and weight loss. We should consider EGD. Qualifiers: Iron deficiency anemia type: unspecified iron deficiency Qualified Code(s): D50.9 - Iron deficiency anemia, unspecified (5) Murmur, cardiac: Assessment and plan: As above, she may be developing significant valvular disease contributing to weakness. Formal echo needed. (6) DVT prophylaxis: Status: Acute Assessment and plan: LMWH, watch for any signs of blood loss. (7) Discharge planning issues: Status: Acute Assessment and plan: She lives alone and must be able to safely accomplish self care before going home. Acute vertigo is improving. History of Present Illness History of Present Illness Chief Complaint: weakness, vertigo, couldn't get out of bed Narrative: 88 yo F with history of hypertension, chronic iron deficiency anemia, and systolic murmur presenting with acute vertigo that started at 12am this morning in the setting of progressive subacute general weakness. She states she woke at 12am to use the rest room. She felt fine in bed, but as soon as she at up on the side of the bed she had sudden onset vertigo. She felt like the floor was moving beneath her feet. She doesn't remember spinning one direction or another. She needed to urinate, so she used her walker to get to the toilet and back to bed but the vertigo continued. She tried to sleep again but could not. She called her daughter at 2am. When the time the ambulance came it was difficult for her to even transfer to the stretcher because of the vertigo. Her vertigo has improved significantly since arriving here after getting 2mg diazepam and 500ml of fluids, though she still has some mild symptoms. She had no chest pain or palpitations or shortness of breath during these episodes. Vertigo was associated to nausea and she vomited x 1, but this has resolved. She has not had recent ear pain, change in hearing, tinnitus, or URI symptoms. She has had vertigo before and meclezine has helped some, but she did not have any at home. This episode was worse than any previous episodes. She was unable to ambulate in the emergency room, even with assistance. Over the past 2-3 months she has had increasing general weakness and feelings of lightheadedness as well. This is separate from the vertigo she felt today. She states she was walking an hour on the single floor in her home every day, but she can't come close to 15 minutes recently. She was seen 09/12/23 in the ED after a fall related to her generalized weakness. At that visit she had negative CT of Head, cervical spine, chest, abdomen, and pelvis. POCUS did raise concern of reduced left ventricular ejection fraction, but she has not had a repeat formal echocardiogram since. Review of Systems All systems reviewed & are unremarkable except as noted in HPI and below Constitutional Constitutional: Denies headache(s), Reports poor appetite (in past 4-5 months) and Reports weight loss (11 lbs in 4-5 month) Eyes Eyes: Denies change in vision (not since cataracts done in 05/2023), Denies diplopia and Denies loss of vision ENT Ears, Nose, Mouth, and Throat: Denies dysphagia and Denies headache(s) Cardiovascular Cardiovascular: Reports leg edema (chronic, but worse in the past 3 weeks), Denies dyspnea on exertion and Denies orthopnea Respiratory Respiratory: Denies dyspnea on exertion Gastrointestinal Gastrointestinal: Denies dysphagia Neurologic Neurologic: Denies abnormal speech, Denies confusion, Denies headache(s), Denies localized weakness, Denies loss of vision, Reports memory loss (no recent change), Denies convulsions and Reports tremor(s) (off/on, not new) Psychiatric Psychiatric: Denies confusion and Reports memory loss (no recent change) PFSH All Active Problems (Updated 11/21/23 @ 14:31 by Kai Rhodes) Discharge planning issues (Acute) DVT prophylaxis (Acute) Weakness (Acute) Vertigo (Acute) Lymphedema (Acute) Essential hypertension (Acute) Insomnia due to medical condition (Acute) Iron deficiency anemia (Chronic) started on ferrous sulfate 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 Ovalles managed with cortisone - helpful. 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 Sister , 80 Cancer Sister No problems noted. Brother No problems noted. Son Cancer Son No problems noted. Son No problems noted. Daughter No problems noted. Daughter No problems noted. Daughter No problems noted. Social History (Updated 11/21/23 @ 14:18 by Kai Rhdoes) Smoking/Tobacco Use Status: Never Second Hand Exposure: No Smoking risk assessment performed?: Yes Alcohol Intake: never Drug use: Never Substance use type: does not use Caregiver/Support person: No Household members: none Housing: house Number of Children: 6 Communication Needs: None Education Level: high school Details: [employer] Do you need help understanding health information?: Rarely current occupation: retired [employer] from [employer] Pets and animals: No Sexually active: No Do you think of yourself as: straight/heterosexual Current gender identity: decline to answer How often do you talk on the phone with friends or family?: decline to answer How often do you get together with friends or relatives?: decline to answer How often do you attend scientology or restorationism services?: decline to answer Do you belong to any clubs or organized social groups?: decline to answer What type of physical activity do you participate in: walking and weight lifting Duration: 45-60 minutes/day Frequency: daily Estephania/Gnosticism: No preference Special estephania needs: No Seatbelt use: always Drive intox or ride w/intox fire truck driver: No Do you feel safe at home: Yes Do you feel safe in your relationship?: Yes Additional Social history: Lives alone in [facility] Allergies and Home Medications Allergies Allergy/AdvReac Type Severity Reaction Status Date / Time Tetanus Vaccines and Toxoid Allergy Severe Swelling/Ed Verified 11/21/23 05:20 jason indomethacin AdvReac Unknown Skin Rash Verified 11/21/23 05:20 gavastatin Allergy Intermediate LE edema Uncoded 11/21/23 05:20 Home Medications Medication Instructions Recorded Confirmed Type multivitamin 1 tab PO DAILY 11/15/14 11/21/23 History omeprazole 20 mg capsule,delayed 20 mg PO HS 05/07/23 11/21/23 History release ferrous sulfate 325 mg (65 mg 325 mg PO DAILY #90 tabs 06/15/23 11/21/23 Rx iron) tablet lisinopril 5 mg tablet 5 mg PO DAILY #30 tabs 09/16/23 11/21/23 Rx meclizine 12.5 mg tablet 12.5 mg PO Q8H PRN #30 tab-caps 10/16/23 11/21/23 Rx Exam Narrative Exam Narrative: GEN: Alert and oriented x 4, pleasant and cooperative, gives linear history. No acute distress at rest. HEENT: Head atraumatic. Conjunctiva clear, no icterus. PEERL, EOMI. no rhinorrhea. MMM, OP benign. Neck is supple with no masses or lymphadenopathy, trachea midline LUNGS: CTAB with normal effort CV: RRR with no murmurs, gallops, or rubs. ABD: +BS, soft, NT/ND EXT: no cyanosis, clubbing. 2+ LE edema to shins bilaterally, not tender. no cords. MSK: No joint redness or swelling NEURO: CN 2-12 grossly intact. I also noted brief left beating nystagmus when attempting head impulse testing, but not reproducible. Normal movement of 4 extremities, strength and sensation to light touch intact and symmetric bilaterally. No pronator drift. Normal speech and coordination (normal FNF). No babinski or clonus. She does have a mild tremor with hands extended, not at rest. SKIN: No rashes or open wounds. PSYCH: normal mood and affect, normal thought process. Recent memory intact. Results Imaging EKG: report reviewed and image reviewed (2nd degree type 1 block, nl axis, QTc 482, no ischemic ST-T changes) Labs 11/21/23 05:10 11/21/23 05:10 Labs: Laboratory Results - last 24 hr 11/21/23 11/21/23 11/21/23 05:10 05:41 08:14 WBC 3.85 L RBC 3.32 L Hgb 10.2 L Hct 31.4 L MCV 95 MCH 30.7 MCHC 32.5 RDW 14.3 Plt Count 180 MPV 11.0 Immature Gran % 0.0 Neutrophils % 56.0 Lymphocytes % 35.1 Monocytes % 6.5 Eosinophils % 1.6 Basophils % 0.8 Nucleated RBC % 0.0 Absolute Neutrophils 2.16 Absolute Lymphocytes 1.35 Absolute Monocytes 0.25 Absolute Eosinophils 0.06 Absolute Basophils 0.03 Sodium 144 Potassium 4.3 Chloride 109 H Carbon Dioxide 24.4 Anion Gap 10.6 BUN 26 H Creatinine 1.1 H Est GFR (CKD-EPI 2020) 48.63 Glucose 136 H Calcium 9.0 Magnesium 2.1 Total Bilirubin 0.4 AST 25 ALT 25 Alkaline Phosphatase 88 Troponin I < 50 < 50 Total Protein 6.6 Albumin 3.5 Urine Color Yellow Urine Clarity Clear Urine pH 7.0 Ur Specific [place] 1.020 Urine Protein Negative Urine Ketones Negative Urine Blood Negative Urine Nitrite Negative Urine Bilirubin Negative Urine Urobilinogen 0.2 Ur Leukocyte Esterase Trace H Urine RBC Negative Urine WBC 3-5 Ur Epithelial Cells Moderate Urine Crystals Negative Urine Bacteria Rare Urine Casts Negative Urine Mucus Negative Ur Culture Indicated? No/Sq. Contamination Urine Glucose Negative Last Vital Signs Temp 36.6 C 11/21/23 09:52 Pulse 80 11/21/23 09:52 Resp 16 11/21/23 09:52 BP 161/84 H 11/21/23 09:52 Pulse Ox 100 11/21/23 09:52 Time Spent Time spent with Patient: 55-74 minutes Time was spent: preparing to see the patient(eg.review tests), obtaining and/or reviewing separately otained hiistory, ordering medications,tests, procedures, referring, communicating with other health director day care center, indepentently interpreting results and counseling the patient
--- NOTE | 2023-11-21 14:21 | PDOC.CMIN ---
Date of service: 11/21/23 Time of Service: 14:21 Care Management Initial Assmt Initial Assessment REASON FOR HOSPITALIZATION:: Weakness, vertico, ambulatory disfunction PREVIOUS FUNCTIONAL STATUS/SOCIAL/FAMILY SUPPORTS:: Toshia is and lives alone in [place]. Her daughters Amaya and Sonal live nearby and are supportive. 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 She is independent with her ADL's at baseline. Her daughters have provided her transportation since she gave up driving in May following cataract surgery. Toshia mentioned that she fell in her shower about three weeks ago. Since then hand rails have been installed and she is looking at ways to make her home more accessible. CURRENT FUNCTIONAL STATUS:: Toshia was lying in bed when CM met with her. She is awake and engages in conversation. She came to the ER following an episode of dizziness that did not resolve after taking meclizine, which she stated is abnormal for her. Toshia shares that she fell in her bathroom 3 weeks ago. She is unable to remember the details of the event, but has since put of 5 hand rails in her home. ADVANCE DIRECTIVES:: [facility] Amaya Before, alt. Sonal [place] Has patient been provided with info about the portal/API?: Yes Did the patient sign up for the portal?: Yes (Prior to admission) CODE STATUS:: DNR/DNI CODE STATUS COMMENT:: COLST on file INSURANCE COVERAGE / FINANCIAL ISSUES:: Medicare [place] State [facility] Supplemental CURRENT HOME/COMMUNITY SERVICES/EQUIPMENT:: Khari PRIMARY CARE PHYSICIAN:: Suzie Cevallos POTENTIAL DISCHARGE NEEDS:: Evaluations for further needs, discharge plan of care, follow up appointments PATIENT/FAMILY EDUCATION NEEDS:: Review discharge instructions, limitations and plan to follow up with community providers. Discuss ask me three. ANTICIPATED BARRIERS TO DISCHARGE:: None identified at this time TRANSPORTATION:: private vehicle with family PLAN:: Anticipate Toshia will discharge home with New [facility] services, if indicated. May benefit from [facility] DEVELOPMENT SYSTEM EFFICIENCY MANAGER. Evaluations for further needs pending. Pt will follow up with community providers and discharge plan of care as recommended. She will be driven home via private vehicle with family. CM will follow. 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 Ovalles managed with cortisone - helpful. 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 Sister , 80 Cancer Sister No problems noted. Brother No problems noted. Son Cancer Son No problems noted. Son No problems noted. Daughter No problems noted. Daughter No problems noted. Daughter No problems noted. Social History (Updated 11/21/23 @ 14:18 by Kai Rhodes) Smoking/Tobacco Use Status: Never Second Hand Exposure: No Smoking risk assessment performed?: Yes Alcohol Intake: never Drug use: Never Substance use type: does not use Caregiver/Support person: No Household members: none Housing: house Number of Children: 6 Communication Needs: None Education Level: high school Details: [employer] Do you need help understanding health information?: Rarely current occupation: retired moscoso from [employer] Pets and animals: No Sexually active: No Do you think of yourself as: straight/heterosexual Current gender identity: decline to answer How often do you talk on the phone with friends or family?: decline to answer How often do you get together with friends or relatives?: decline to answer How often do you attend adventism or jehovah's witness services?: decline to answer Do you belong to any clubs or organized social groups?: decline to answer What type of physical activity do you participate in: walking and weight lifting Duration: 45-60 minutes/day Frequency: daily Estephania/Jain: No preference Special estephania needs: No Seatbelt use: always Drive intox or ride w/intox motor coach bus driver: No Do you feel safe at home: Yes Do you feel safe in your relationship?: Yes Additional Social history: Lives alone in [facility](Care Management) Screening Will the Patient Participate in the Screening?: Declined to provide Do you worry about having a steady place to live?: no Problems where you live: no known problems In the past 12 months, have you had to go without electric, gas, oil or water in your home?: no Have you or anyone in your house had to go without enough food to eat?: no Has lack of transportation kept you from medical appointments or from doing things needed for daily living?: no Has anyone in your support network made you feel unsafe for any reason?: no
[2023-11-21] MEDS: Acetaminophen 325 MG TAB PO (18:11)
[2023-11-21] MEDS: Lactated Ringers 1,000 ML 75 ML IV (20:25)
[2023-11-21] MEDS: Omeprazole 20 MG CAPCR PO (20:26)
[2023-11-22 00:11] VITALS: BP 132/53; PULSE 68; RESP 18; TEMP 37; O2SAT 95
[2023-11-22 03:02] VITALS: BP 140/67; PULSE 60; RESP 18; TEMP 36.8; O2SAT 95
[2023-11-22 07:16] LABS: Anion Gap 8.5 mmol/L (3-11); BUN 18 mg/dL (7-18); CO2 23.5 mmol/L (21.0-32.0); Calcium 8.9 mg/dL (8.5-10.1); Chloride 112 mmol/L (98-107); Estimated GFR 54.53 (mL/min/1.73m2); Glucose 89 mg/dL (74-106); Potassium 4.9 mmol/L (3.5-5.1); Sodium 144 mmol/L (136-145)
[2023-11-22 07:17] LABS: Abs Immature Grans 0.01 10^3/uL (0.0-0.06); Absolute Basophil Count 0.02 10^3/uL (0.0-0.2); Absolute Eosinophil Count 0.07 10^3/uL (0.0-0.7); Absolute Monocyte Count 0.27 10^3/uL (0.1-0.8); Absolute Neutrophil Count 1.73 10^3/uL (1.2-6.7); Basophils % 0.6; Eosinophils % 1.9; HCT 29.9 % (36.0-46.0); HGB 9.5 g/dL (11.2-15.7); Immature Grans % 0.3; Lymphocytes % 41.7; MCH 30.8 pg (27.0-33.0); MCHC 31.8 % (32.0-36.0); MCV 97 fL (80-95); MPV 10.9 fL (8.0-11.0); Monocytes % 7.5; Platelet Count 153 10^3/uL (130-400); RBC 3.08 10^6/uL (3.93-5.22); RDW 14.6 % (11.7-14.6); RDW-SD 51.7 fL
[2023-11-22 07:38] VITALS: BP 170/57; PULSE 64; RESP 18; TEMP 36.4; O2SAT 99
[2023-11-22] MEDS: Lisinopril 5 MG TAB PO (07:44)
[2023-11-22] MEDS: Ferrous Sulfate 325 MG TAB PO (07:44)
[2023-11-22] MEDS: Multivitamin TAB 1 TAB PO (07:44)
[2023-11-22 08:49] VITALS: BP 135/59
[2023-11-22] MEDS: Enoxaparin 40 MG/0.4 ML SYR SC (09:53)
--- NOTE | 2023-11-22 10:20 | PT.INTREAT ---
Date of service: 11/22/23 Time of Service: 09:50 PT Notes Visit Reasons: weakness,vertigo,ambulatory dysfun Inpatient Physical Therapy Treatment Note [facility] Date: 11/22/2023 PRECAUTIONS: Standard, falls SUBJECTIVE: Stated she is doing better. No dizziness getting up into chair or going to bathroom earlier in the morning. Also, no dizziness with ambulation around full loop of second floor this morning. Stated she has been continuing to do her seated ankle pumps, LAQs, seated marching and seated hip abd /adduction independently in room. OBJECTIVE: Patient's Daughter, Amaya, was in attendance with Toshia t/o PT appt today. ? PAIN: No complaints of pain offered. Therapeutic Activities ([id number]): Direct one-on-one instruction in dynamic activities to improve functional performance. ? BED MOBILITY/TRANSFERS? Sit-stand: SBA? Stand-sit: SBA ? Provided skilled cues and instruction on performance and technique throughout. GAIT? Assistive Device: FFW, w/c follow ( but did not use ) ? Weight bearing: Full Assist: CGA ? Distance:? 300ft ? Deviation: Needs cueing to stand up straight and to look straight ahead, not down at feet when walking.? No noted LOB.? ASSESSMENT:? Tolerated today's session well with good stability when transferring from position to position and when ambulating. PLAN: Continue with advancement in ambulation endurance. TREATMENT CODE/TIME: 83100x2, 9:50 to 10:10 am (20 minutes)
--- NOTE | 2023-11-22 11:14 | DSE_ITS ---
Date of service: 11/22/23 Time of Service: 11:14 DS: Diagnosis Discharge Diagnosis (1) Vertigo: Status: Acute Asessment and Plan: Improved spontaneously, no vertigo on day of discharge, did well with physical therapy. Resume home health for ongoing PT. (2) Weakness: Status: Acute Asessment and Plan: Subacute over the past several months. Some concern for cardiac cause, POCUS in ED in [place] suggested low LVEF. Echocardiogram ordered for outpatient. LE edema that is chronic but not in overt CHF while here. (3) Essential hypertension: Status: Acute Asessment and Plan: continue outpatient medication (4) Iron deficiency anemia: Status: Chronic Asessment and Plan: Discussed consideratoin of GI work up. 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 F/u with outpatient. (5) Murmur, cardiac: Asessment and Plan: loud [place]. Last echo I could find was 2017. As above repeat ordered. Discharge Plan Disposition Patient Disposition: Home W/Home Health Services Condition: Good Discharge Details Reason For Visit: weakness,vertigo,ambulatory dysfun Admit Date/Time: 11/21/23 09:04 Admit Provider: Kai Rhodes Attending Provider: Kai Rhodes Primary Care Provider: Suzie Cevallos Hospital Course Hospital Course: 88 yo F with history of hypertension, chronic iron deficiency anemia, and systolic murmur presenting with acute vertigo that started at 12am on day of admission in the setting of progressive subacute general weakness over several months. She was unable to ambulate at all and was admitted for observation. She improved markedly and was able to walk the whole floor loop with PT by the next day. No concerning events on telemetry, 1st and 2nd degree type 1 heart blocks intermittently. She should have outpatient follow up including an echocardiogram, preferrably this week. We did discuss possible GI work up for iron deficiency, depnending on goals of care. Home Meds and New Rx's Prescriptions: No Action lisinopril 5 mg tablet 5 mg PO DAILY Qty: 30 2RF meclizine 12.5 mg tablet 12.5 mg PO Q8H PRN Qty: 30 0RF Rx Instructions: 1 TAB Q8HR PRN FOR VERTIGO. ferrous sulfate 325 mg (65 mg iron) tablet 325 mg PO DAILY Qty: 90 3RF Rx Instructions: Take 1 tablet daily with your vitamin c multivitamin 1 EACH capsule 1 tab PO DAILY omeprazole 20 mg capsule,delayed release(DR/EC) 20 mg PO HS Rx Instructions: 1 CAP DAILY Discharge Instructions Instructions: Benign Paroxysmal Positional Vertigo (DC) Additional Instructions: Follow up with echocardiogram. This should be scheduled this week. Stand Alone Forms: Nursing Discharge Form Referrals: Suzie Cevallos MD [Primary Care Provider] - (Please call on Thursday to make a hospital follow up within 10-14 days. ) Activity:: Activity as Tolerated Equipment/Supplies:: Walker Diet:: As Tolerated Discharge Orders Discharge Orders: Discharge Order (Routine); Ordered 11/22/23 Ordered By: Kia Rhodes Other Ambulatory Orders: US echocardiogram (Routine) Location: None Selected Ordered By: Kai Rhodes DS: Summary Time Spent with Patient providing and/or coordinating discharge services: Greater than 30 minutes Status at Discharge Functional status at discharge: uses cane/walker Overall status at discharge: patient is back to baseline Mental Status: mental status grossly normal Speech and Movement: speech and movement normal Mood: congruent mood Affect: normal affect Quality:SDOH Health Related Social Needs: No Data to Display Exam Narrative Exam Narrative: GEN: Alert and oriented x 4, pleasant and cooperative. No acute distress at rest. HEENT: Head atraumatic. Conjunctiva clear, no icterus. PEERL, EOMI. no rhin orrhea. MMM, OP benign. LUNGS: CTAB with normal effort CV: RRR with no murmurs, gallops, or rubs. ABD: +BS, soft, NT/ND EXT: no cyanosis, clubbing. 1-2+ LE edema to shins bilaterally, not tender. no cords. NEURO: CN 2-12 grossly intact. No nystagmus. Stable ambulation with PT. Normal movement of 4 extremities. PSYCH: normal mood and affect, normal thought process. Recent memory intact. Psych Mental Status: mental status grossly normal Speech and Movement: speech and movement normal Mood: congruent mood Affect: normal affect DS: Data Vitals/I&O Vitals and I&O: Vital Signs Temperature 36.4 C L 11/22/23 07:38 Temperature Source Tympanic 11/22/23 07:38 Pulse 64 11/22/23 07:38 Pulse Rhythm Regular 11/22/23 07:45 Pulse 70 11/21/23 09:20 Respiratory Rate 18 11/22/23 07:38 Respiratory Effort Normal, Non-Labored 11/22/23 07:45 Respiratory Depth Normal 11/22/23 07:45 Respiratory Pattern Normal 11/22/23 07:45 Blood Pressure 135/59 L 11/22/23 08:49 Blood Pressure Mean 86 11/21/23 08:32 Pulse Oximetry 99 11/22/23 07:38 Oxygen Delivery Method Room Air 11/22/23 07:38 Oxygen Flow Rate 0 11/22/23 07:38 Pain Level 0 11/22/23 07:38 Intake & Output 11/21/23 11/21/23 11/22/23 11:59 23:59 11:59 Intake Total 1000 / 1740 740 / 1740 1000 / 1000 Output Total 1700 / 1700 Balance 1000 / 1740 740 / 1740 -700 / -700 Weight 87.5 kg Intake: IV 1000 / 1000 1000 / 1000 Oral 740 / 740 Output: Urine 1700 / 1700 Other: Urine Color Yellow Urine Appearance Clear Urine Odor None Comment with stool ; unmeasured purewick in place Stool Size Moderate Stool Characteristics Formed Brown Voiding Methods Bedside Commode Data Completed and Pending Labs on day of discharge: Labs from last 24 hours 11/22/23 11/22/23 07:10 06:21 WBC 3.60 L Cancelled RBC 3.08 L Cancelled Hgb 9.5 L Cancelled Hct 29.9 L Cancelled MCV 97 H Cancelled MCH 30.8 Cancelled MCHC 31.8 L Cancelled RDW 14.6 Cancelled Plt Count 153 Cancelled MPV 10.9 Cancelled Immature Gran % 0.3 Cancelled Neutrophils % 48.0 Cancelled Band Neutrophils % Cancelled Lymphocytes % 41.7 Cancelled Atypical Lymphs % Cancelled Monocytes % 7.5 Cancelled Eosinophils % 1.9 Cancelled Basophils % 0.6 Cancelled Metamyelocytes % Cancelled Myelocytes % Cancelled Promyelocytes % Cancelled Other Cells % Cancelled Nucleated RBC % 0.0 Cancelled Absolute Neutrophils 1.73 Cancelled Absolute Lymphocytes 1.50 Cancelled Absolute Monocytes 0.27 Cancelled Absolute Eosinophils 0.07 Cancelled Absolute Basophils 0.02 Cancelled RBC Morphology Cancelled Polychromasia Cancelled Hypochromasia Cancelled Poikilocytosis Cancelled Basophilic Stippling Cancelled Anisocytosis Cancelled Microcytosis Cancelled Macrocytosis Cancelled Spherocytes Cancelled Tear Drop Cells Cancelled Ovalocytes Cancelled Stomatocytes Cancelled Granado-Grace Bodies Cancelled Beck Cells/Echinocytes Cancelled Acanthocytes (Spur) Cancelled Schistocytes Cancelled Sodium 144 Potassium 4.9 Chloride 112 H Carbon Dioxide 23.5 Anion Gap 8.5 BUN 18 Creatinine 1.0 Est GFR (CKD-EPI 2020) 54.53 Glucose 89 Calcium 8.9 PFSH All Active Problems (Updated 11/21/23 @ 14:31 by Kai Rhodes) Discharge planning issues (Acute) DVT prophylaxis (Acute) Weakness (Acute) Vertigo (Acute) Lymphedema (Acute) Essential hypertension (Acute) Insomnia due to medical condition (Acute) Iron deficiency anemia (Chronic) started on ferrous sulfate 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 Ovalles managed with cortisone - helpful. 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 Sister , 80 Cancer Sister No problems noted. Brother No problems noted. Son Cancer Son No problems noted. Son No problems noted. Daughter No problems noted. Daughter No problems noted. Daughter No problems noted. Social History (Updated 11/21/23 @ 14:18 by Kai Rhodes) Smoking/Tobacco Use Status: Never Second Hand Exposure: No Smoking risk assessment performed?: Yes Alcohol Intake: never Drug use: Never Substance use type: does not use Caregiver/Support person: No Household members: none Housing: house Number of Children: 6 Communication Needs: None Education Level: high school Details: [employer] Do you need help understanding health information?: Rarely current occupation: retired [employer] from [employer] Pets and animals: No Sexually active: No Do you think of yourself as: straight/heterosexual Current gender identity: decline to answer How often do you talk on the phone with friends or family?: decline to answer How often do you get together with friends or relatives?: decline to answer How often do you attend restorationism or religion services?: decline to answer Do you belong to any clubs or organized social groups?: decline to answer What type of physical activity do you participate in: walking and weight lifting Duration: 45-60 minutes/day Frequency: daily Estephania/Synagogue: No preference Special estephania needs: No Seatbelt use: always Drive intox or ride w/intox local intermodal truck driver: No Do you feel safe at home: Yes Do you feel safe in your relationship?: Yes Additional Social history: Lives alone in [facility] Time Spent with Patient Time Spent with Patient: <45 minutes Time was spent: preparing to see the patient(eg.review tests), obtaining and/or reviewing separately otained hiistory, ordering medications,tests, procedures, referring, communicating with other health animal care giver, indepentently interpreting results, counseling the patient and care coordination
--- NOTE | 2023-11-22 11:16 | PDOC.CMDIS ---
Date of service: 11/22/23 Time of Service: 11:16 Care Management Discharge Plan Reason for Hospitalization: Weakness, vertico, ambulatory disfunction Discharge Plan: Toshia is discharged home via private vehicle with family. She will follow up with community providers and her discharge plan of care as recommended. New [facility] PT is ordered. Patient/Family Education Needs: Review discharge instructions, limitations, medications and plan to follow up with community providers. Discuss ask me three. Services Needed at Discharge: Home Health Care Services ([facility] PT) [facility] Health Related Social Needs: No Data to Display
--- NOTE | 2023-11-22 13:08 | PDOC.HHF2F_ITS ---
Home Health Referral Home Health Orders Clinical synopsis of why skilled professionals are needed: Admitted with inability to ambulate in setting of acute vertigo and progressive subacute weakness Medical diagnosis necessitation home health referral: ambulatory dysfunction, weakness Registered Nurse: Check all that apply Assess for exacerbation of medical condition, instruct patient/caregivers on signs and symptoms to report for early detection: Ordered Physical Therapist: Check all that apply Increase strength & endurance for safe mobility at home: Ordered Fall reduction therapy program for patient with history of frequent falls: Ordered Toggle Press Folder And Feeder: Assist with senior care care planning: Ordered Home Bound Status Requires the aid of supportive device (check all that apply): Walker Assistance of another person (Describe assistance and medical necessity): depends on family for transportation Describe why leaving home would require a considerable and taxing effort: Safety Concerns: describe (multiple recent falls) Encounter Date and Reason: I certify that a FTF encounter for this patient was performed on November 22, 2023 and that such encounter was related to the primary reason the patient requires home health services. The encounter was conducted in the following manner: * By me as the certifying physician, DISEASE EDUCATION SPECIALIST, PA or * By an inpatient physician, DISEASE EDUCATION SPECIALIST or PA during an inpatient stay who communicated findings to me, Certification And Authentication I certify that I composed the above information based on my clinical judgment relating to this patient's medical condition and, if applicable, clinical findings communicated to me by the NPP or inpatient physician who performed the FTF encounter. Name of Provider that will be monitoring home health services: Suzie Cevallos
== END 2023-11-22 11:52 | disposition home health service (06) ==
LOC: ER 09:27 → MS 09:45
PROVIDERS: Admitting Provider Family Medicine; Emergency Provider Emergency Medicine Emergency Medical Services; PCP Family Medicine; Visit Provider Family Medicine
DX: R42 Dizziness and giddiness (principal); R53.1 Weakness; R01.1 Cardiac murmur, unspecified; D50.9 Iron deficiency anemia, unspecified; I89.0 Lymphedema, not elsewhere classified; M54.41 Lumbago with sciatica, right side; E78.5 Hyperlipidemia, unspecified; E66.9 Obesity, unspecified; Z68.35 Body mass index [BMI] 35.0-35.9, adult; G31.84 Mild cognitive impairment of uncertain or unknown etiology; Z79.899 Other long term (current) drug therapy
CPT/HCPCS: 00123; 36415; 80048; 80053; 93005; 96361; 96372; 96374; 97162; 97530; 99285; J1650; 81003; 81015; 83735; 84484; 85025; 93010; 99222; 99238; G0378; J3360

== ENCOUNTER → 2023-12-01 03:19 | Outpatient (CLI) | payer MEDICARE, SELFPAY ==
--- NOTE | 2023-12-01 | DI.US_ITS ---
APPROVED REPORT EXAM: Comprehensive 2D, Doppler, and color-flow Echocardiogram Patient Location: Out-Patient Geodetic Technician: Liana Dolan RDCS (AE) Other Information Study Quality: Adequate Conclusion Normal left ventricular wall thickness and chamber size. Ejection fraction is 60%. Wall motion is n ormal Normal right ventricular size and function Normal right atrial size. The left atrium is moderately dilated Aortic valve is calcified and trileaflet with trace regurgitation. There is no hemodynamically signi ficant aortic stenosis Mitral annular calcification, mildly thickened mitral leaflets, trace mitral regurgitation Dilated ascending aorta 3.9 cm Estimated right ventricular systolic pressure is 33 mmHg Wall motion Left Ventricle The left ventricle is normal size. The left ventricular systolic function is normal. The left ventric ular ejection fraction is within the normal range. There is normal left ventricular wall thickness. T here is normal LV segmental wall motion. There is no ventricular septal defect visualized. LVEF is 60 %. Right Ventricle The right ventricle is normal size. The right ventricular systolic function is normal. Atria Left atrium is moderately dilated. Right atrium is normal The interatrial septum is intact with no ev idence for an atrial septal defect. Aortic Valve Aortic valve is calcified. Aortic valve is trileaflet. There is no aortic valvular stenosis. Trace ao rtic regurgitation. Mitral Valve Mild mitral annular calcification. The mitral valve is mildly thickened. No evidence of mitral valve stenosis. Trace mitral regurgitation. Tricuspid Valve The tricuspid valve is normal in structure. There is no tricuspid valve stenosis. Trace tricuspid re gurgitation. The RVSP is 33.2mmHg. Pulmonic Valve The pulmonary valve is normal in structure. There is no pulmonic valvular stenosis. There is no pulmo karen valvular regurgitation. Great Vessels The aortic root is normal in size. The ascending aorta is mildly dilated. Aortic arch is normal in ca liber. The IVC collapses <50% with inspiration. Pericardium There is no pericardial effusion. 2D Dimensions IVSD d PLAX 0.99 cm F: 0.6-1.0 Ao Root d 2.87 cm F: 2.7 - 3.3 LVPW d PLAX 0.97 cm F: 0.6 - 1.0 Ao Asc Diam d 3.90 cm F: 2.3 - 3.1 LVID d PLAX 4.11 cm F: 3.8 - 5.2 LVDs 2.86 cm F: 2.2 - 3.5 LV EF Teichholz 58.1 % FS 30.29 % LV EDV (Teich) 74.5 mL LV ESV (Teich) 31.2 mL M-Mode TAPSE 2.34 cm (M/F) >1.7 Auto EF LV EDV A4C 107.0 mL LV EDV A2C 104.9 mL LV EDV BP 106.0 mL LV ESV A4C 41.6 mL LV ESV A2C 41.2 mL LV ESV BP 41.5 mL LVEF(%) A4C 61.1 % LVEF(%) A2C 60.8 % LVEF(%) BP 60.9 % LV SV A4C 65.3 ml LV SV A2C 63.7 ml LV SV BP 64.5 ml LV CO A4C 3.5 L/min LV CO A2C 3.5 L/min LV CO BP 3.5 L/min HR A4C 52.93 BPM HR A2C 55.30 BPM LV EDV Index (BP) LA Volume LA Length A4C 6.0 cm LA Length A2C 6.1 cm LA Area A4C s 23.85 cm2 LA Area A2C s 25.77 cm2 LA Vol A4C A-L 79.96 mL LA Vol A2C A-L 91.64 mL LA Vol Biplane A-L 86.4 mL LA Vol/BSA A4C A-L LA Vol/BSA A2C A-L LA Vol/BSA BP A-L 46.0 mL/m2 LA Vol A4C MOD 74.5 mL LA Vol A2C MOD 87.7 mL LA Vol BP MOD 81.5 mL RA Volume RA Area A4C 12.8 cm2 RA ESV A4C (A-L) 25.6mL RA Vol/BSA A4C A-L RA Length A4C 5.5 cm RA ESV A4C (MOD) 24.4mL LV Diastology MV E' medial 0.109 (>0.07 m/s) MV E Vmax 1.68 (0.4-1.3 m/s) MV E/E' MED 15.41 (<14) MV A Vmax 1.50 (0.4-1.3 m/s) MV E' lateral 0.118 (>0.1 m/s) E/A Ratio 1.1 MV E/E' LAT 14.24 (<14) MV E' Average 0.113 m/s MV E/E'(average) 14.81 Aortic Valve AoV Vmax 1.73 m/s LVOT Vmax 1.14 m/s AoV Peak Grad 41.1 mmHg LVOT Peak Grad 5.2 mmHg AoV Area (Vmax) 2.22 cm2 LVOT VTI 0.300 m AoV VTI 0.433 m LVOT Mean Curtis. 0.83 m/s AoV Mean Curtis. 1.23 m/s LVOT Mean Grad 3.0 mmHg AoV Mean Grad 7.0 mmHg LVOT SV 100.79 mL AoV Area (VTI) 2.33 cm2 LVOT Diam s 2.05 cm Velocity Ratio 0.66 AV Regurg Peak Gr. 70.00 mmHg AR Decel Stafford 1.4m/sec2 AR DT 3066 msec AR PHT 889 msec AR Vmax 4.18 m/s Mitral Valve MV DT 175 (160-240 msec) MV Vmax TIPS 1.58 m/s MV Mean Grad 4.1 (<2mmHg) MV VTI 0.520 m Pulmonary Valve PV Vmax 1.19 (0.5-1.5 m/s) RVOT Vmax 0.93 m/s PV Peak Grad 5.6 mmHg RVOT Peak Gr. 3.5 mmHg PV Mean Curtis 0.83 m/s RVOT VTI 0.195 m PV Mean Grad 3.2 mmHg RVOT Mean Gr. 1.9 mmHg Tricuspid Valve RA Pressure 8.00 mmHg TR Vmax 2.50 m/s TV S' 0.16 m/s TR Peak Grad 25.2 mmHg RVSP (TR) 33.2 mmHg
== END ==
PROVIDERS: PCP Family Medicine; Visit Provider Family Medicine
DX: R01.1 Cardiac murmur, unspecified (principal); R53.1 Weakness
CPT/HCPCS: 93306

== ENCOUNTER 2024-12-06 01:56 | Outpatient (CLI) | payer MEDICARE, SELFPAY ==
[2024-12-06 12:45] LABS: Abs Immature Grans 0.01 10^3/uL (0.0-0.06); Absolute Basophil Count 0.04 10^3/uL (0.0-0.2); Absolute Eosinophil Count 0.08 10^3/uL (0.0-0.7); Absolute Monocyte Count 0.27 10^3/uL (0.1-0.8); Absolute Neutrophil Count 2.53 10^3/uL (1.2-6.7); Basophils % 0.9 %; Eosinophils % 1.9 %; HCT 31.7 % (36.0-46.0); HGB 10.2 g/dL (11.2-15.7); Immature Grans % 0.2 %; Lymphocytes % 30.7 %; MCH 31.4 pg (27.0-33.0); MCHC 32.2 % (32.0-36.0); MCV 98 fL (80-95); MPV 11.4 fL (8.0-11.0); Monocytes % 6.4 %; Neutrophils % 59.9 %; Platelet Count 187 10^3/uL (130-400); RBC 3.25 10^6/uL (3.93-5.22); RDW 13.8 % (11.7-14.6); RDW-SD 49.1 fL; WBC 4.23 10^3/uL (4.4-10.8)
[2024-12-06 13:20] LABS: ALT 21 U/L (14-59); AST 26 U/L (15-37); Albumin 3.9 g/dL (3.4-5.0); Alkaline Phosphatase 89 U/L (46-116); Anion Gap 9.7 mmol/L (3-11); BUN 25 mg/dL (7-18); Bilirubin, Total 0.5 mg/dL (0.2-1.0); CO2 25.3 mmol/L (21.0-32.0); CREATININE 1.1 mg/dL (0.55-1.02); Calcium 9.6 mg/dL (8.5-10.1); Chloride 109 mmol/L (98-107); Estimated GFR 48.33 (mL/min/1.73m2); Ferritin 48 ng/mL (8-252); Glucose 93 mg/dL (74-106); Sodium 144 mmol/L (136-145); Total Protein 7.2 g/dL (6.4-8.2); Vitamin B12 434 pg/mL (193-986)
== END 2024-12-06 01:57 | disposition home or self-care (01) ==
LOC: LOS 01:56
PROVIDERS: PCP Family Medicine; Visit Provider Family Medicine
DX: D50.9 Iron deficiency anemia, unspecified (principal); R53.1 Weakness; Z00.00 Encounter for general adult medical examination without abnormal findings; I10 Essential (primary) hypertension
CPT/HCPCS: 36415; 80053; 82607; 82728; 85025

== ENCOUNTER 2024-12-06 09:24 | Outpatient (CLI) | payer MEDICARE, SELFPAY ==
--- NOTE | 2024-12-06 09:15 | RT.EKG_ITS ---
APPROVED REPORT Exam: Resting ECG Reason for Exam: cardiac arrhythmia Patient Location: O HR:72 bpm ECG Measurements Heart Rate 72 AXIS IA 248 P -29 QRSd 90 QRS 2 QT 412 T 32 QTc 451 Conclusion Sinus rhythm...normal P axis, V-rate 50- 99 Prolonged IA interval...IA >220, V-rate 50- 90
== END 2024-12-06 09:25 | disposition home or self-care (01) ==
LOC: DI.CM 09:25
PROVIDERS: PCP Family Medicine; Visit Provider Family Medicine
DX: I49.9 Cardiac arrhythmia, unspecified (principal)
CPT/HCPCS: 93010

== ENCOUNTER 2024-12-14 01:57 | Outpatient (CLI) | payer MEDICARE, SELFPAY ==
--- NOTE | 2024-12-14 06:30 | DI.CT_ITS ---
Exam(s) CT HEAD WO EXAM: CT HEAD WO CLINICAL HISTORY: Accidental falls,weakness,r53.1,[id number]. TECHNIQUE: Imaging Protocol: Axial computed tomography images with coronal and sagittal reformatted images were created and reviewed COMPARISON: CT CT HEAD CERVICAL SPINE WO from 09/12/2023 FINDINGS: Ventricles and Extra axial spaces: Normal in size and morphology for the patient's age. Hemorrhage: None. Cerebral parenchyma: There are areas of decreased attenuation in the white matter consistent with chr onic microvascular ischemic disease. No evidence of an acute territorial infarct. No acute mass eff ect. Midline shift: None. Brainstem/Cerebellum: Normal. Calvarium: Normal. Visualized Paranasal sinuses/Mastoids: Mild mucosal thickening in the ethmoid air cells bilaterally. The remaining visualized paranasal sinuses and mastoid air cells are clear. Soft Tissues: Unremarkable. IMPRESSION: No acute intracranial process. RADIATION DOSE DELIVERED: 822.34mGy.cm Total DLP DATA REPOSITORY: All CT scans at this facility are submitted to the National Radiology Data Registry (NRDR) Dose Index Registry (DIR) with the [employer] (A[employer]). RADIATION OPTIMIZATION: All CT scans at this facility use at least one of these dose optimization te chniques: automated exposure control; mA and/or kV adjustment per patient size (includes targeted exa ms where dose is matched to clinical indication); or iterative reconstruction.
== END 2024-12-14 02:17 ==
LOC: DI 01:58
PROVIDERS: PCP Family Medicine; Visit Provider Family Medicine
DX: R53.1 Weakness (principal); W19.XXXA Unspecified fall, initial encounter
CPT/HCPCS: 70450

== ENCOUNTER 2025-04-12 04:22 | Outpatient (CLI) | payer MEDICARE, SELFPAY ==
[2025-04-12 14:27] LABS: Anion Gap 10.8 mmol/L (3-11); BUN 26 mg/dL (7-18); CO2 27.2 mmol/L (21.0-32.0); Calcium 9.5 mg/dL (8.5-10.1); Chloride 107 mmol/L (98-107); Estimated GFR 28.49 (mL/min/1.73m2); Glucose 139 mg/dL (74-106); Potassium 3.5 mmol/L (3.5-5.1); Sodium 145 mmol/L (136-145)
== END 2025-04-12 04:23 | disposition home or self-care (01) ==
LOC: LOS 04:22
PROVIDERS: PCP Family Medicine; Visit Provider Family Medicine
DX: I10 Essential (primary) hypertension (principal)
CPT/HCPCS: 36415; 80048

== ENCOUNTER 2025-05-16 11:06 | Emergency (ER) | payer MEDICARE, SELFPAY ==
[2025-05-16 11:10] VITALS: BP 144/67; PULSE 78; RESP 18; TEMP 35.9; O2SAT 100
--- NOTE | 2025-05-16 11:15 | DI.CT_ITS ---
Exam(s) CT HEAD WO EXAM: CT HEAD WO CLINICAL HISTORY: Fall. TECHNIQUE: Imaging Protocol: Axial computed tomography images with coronal and sagittal reformatted images were created and reviewed COMPARISON: CT HEAD WITHOUT CONTRAST from 09/11/[address] HEAD CERVICAL SPINE WO from 09/12/2023 FINDINGS: Ventricles and Extra axial spaces: Normal in size and morphology for the patient's age. Hemorrhage: None. Cerebral parenchyma: No evidence of acute infarct or mass. Patchy hypodensities in the white matter consistent with microvascular changes. Midline shift: None. Brainstem/Cerebellum: Normal. Bones: No skull or facial fractures. Hyperostosis frontalis interna. Visualized Paranasal sinuses:Clear. Mastoids: Clear. Soft Tissues: Unremarkable. ORBITS: Unremarkable. IMPRESSION: No acute intracranial process. RADIATION DOSE DELIVERED: 831.2mGy.cm Total DLP DATA REPOSITORY: All CT scans at this facility are submitted to the National Radiology Data Registry (NRDR) Dose Index Registry (DIR) with the [employer] (ACR). RADIATION OPTIMIZATION: All CT scans at this facility use at least one of these dose optimization techniques: automated exposure control; mA and/or kV adjustment per patient size (includes targeted exams where dose is matched to clinical indication); or iterative reconstruction.
--- NOTE | 2025-05-16 11:26 | W.ED.GENAD ---
Discharge Plan Disposition Patient Disposition: Home Condition: Stable Discharge Details Clinical Impression: Fall, Sprain of left wrist, Closed head injury without concussion Primary Care Provider: Suzie Cevallos ED Provider: Tori Akbar Home Meds and New Rx's Prescriptions: Continued meclizine 12.5 mg tablet 12.5 mg PO Q8H PRN Qty: 30 0RF Rx Instructions: 1 TAB Q8HR PRN FOR VERTIGO. lisinopril 5 mg tablet 5 mg PO DAILY Qty: 90 3RF ferrous sulfate 325 mg (65 mg iron) tablet 325 mg PO DAILY Qty: 90 3RF Rx Instructions: Take 1 tablet daily with your vitamin c omeprazole 20 mg capsule,delayed release(DR/EC) 20 mg PO HS Qty: 90 3RF torsemide 10 mg tablet 10 mg PO DAILY Qty: 45 1RF Rx Instructions: 04/19/2025: Take no more than 4 times weekly. -hb multivitamin 1 EACH capsule 1 tab PO DAILY Discharge Instructions Instructions: Preventing falls in adults, Head Injury Observation (DC), Common Wrist Injuries ED Additional Instructions: No evidence of acute fracture today no evidence of bleeding in the brain or any abnormalities on the head CT. Please wear the splint as needed for comfort. Please return to the ER for any worsening pain, dizziness lightheadedness, confusion worsening headache not relieved by Tylenol, or any concerns. Follow up with primary care provider in 3-5 days. Return to ED sooner if any worsening or concerns. Referrals: Suzie Cevallos MD [Primary Care Provider, Medicine] - 5 days Referral Note: ER follow-up, call for appointment Clinical Impression: Closed head injury without concussion; Fall; Sprain of left wrist HPI General Mode of arrival: EMS. Date/Time Provider Initiated Documentation: 05/16/25 11:17. Limitations to Documentation: no limitations. Information obtained by: patient, EMS and old records reviewed. HPI Narrative: 89-year-old female presents to the ER company by EMS with a chief complaint of closed head injury and fall. Patient states that she went out to get the mail and turned around and tripped. She did hit her head, no loss of consciousness, she is ANO x 4 upon arrival. She does have some bruising noted to her left wrist and some left wrist pain. She also is complaining of some right knee pain. She states she was unable to get up after the fall and crawled into her house. She denies any neck pain or back pain. She does have a past medical history of Rodrigues's esophagus, cardiac murmur, bilateral knee replacements. Related Data Home Medications ?Medication ?Instructions ?Recorded ?Confirmed multivitamin 1 tab PO DAILY 11/15/14 05/16/25 ferrous sulfate 325 mg (65 mg 325 mg PO DAILY #90 tabs 06/15/23 05/16/25 iron) tablet meclizine 12.5 mg tablet 12.5 mg PO Q8H PRN #30 tab-caps 10/16/23 05/16/25 lisinopril 5 mg tablet 5 mg PO DAILY #90 tabs 12/06/24 05/16/25 omeprazole 20 mg capsule,delayed 20 mg PO HS #90 caps 03/09/25 05/16/25 release torsemide 10 mg tablet 10 mg PO DAILY #45 tabs 04/19/25 05/16/25 Previous Rx's ?Medication ?Instructions ?Recorded ferrous sulfate 325 mg (65 mg 325 mg PO DAILY #90 tabs 06/15/23 iron) tablet meclizine 12.5 mg tablet 12.5 mg PO Q8H PRN #30 tab-caps 10/16/23 lisinopril 5 mg tablet 5 mg PO DAILY #90 tabs 12/06/24 omeprazole 20 mg capsule,delayed 20 mg PO HS #90 caps 03/09/25 release torsemide 10 mg tablet 10 mg PO DAILY #45 tabs 04/19/25 Allergies Allergy/AdvReac Type Severity Reaction Status Date / Time Tetanus Vaccines and Toxoid Allergy Severe Swelling/Ed Verified 05/16/25 11:16 jason ibuprofen AdvReac Intermediate Other (See Verified 05/16/25 11:16 Comment) indomethacin AdvReac Unknown Skin Rash Verified 05/16/25 11:16 gavastatin Allergy Intermediate LE edema Uncoded 05/16/25 11:16 General Stated Complaint: Fall/Non TraumaCriteria VIDYA: 3 Review of Systems All systems reviewed & are unremarkable except as noted in HPI and below Exam Narrative Exam Narrative: General: Well Developed, Awake and Alert, conversant. Skin: Warm and Dry HEENT: Head: No palpable deformities, Normocephalic Eyes: Pupils PERRLA, EOM's intact. No periorbital eccymosis or step off Ears: Canal patent. Tympanic membranes are clear . No carrizales's sign, no hemptympanum. Nose/Face: Atraumatic. Facial bones nontender to palpation and stable with manipulation. Mouth/Throat: No intraoral trauma. Teeth and mandible are intact. Neck: No midline tenderness, no step off, no deformity to palpation of C-spine. Trachea midline. Chest: No surface trauma. Nontender without crepitus or deformity. Lungs clear to ausculatation bilaterally. Heart: RRR, no rubs, murmurs or gallop. Abdomen: No abrasions, ecchymosis, or surface trauma. Nondistended. Nontender to palpation no guarding, rebound, or rigidity. Pelvis: Nontender to palpation and stable to compression. Femoral pulses strong and equal Extremities: Some bruising noted to the left upper extremity, sensation intact. Peripheral pulses intact and equal. Neuro: ANO x4, GCS 15, cranial nerves II through XII intact. Motor and sensory exam nonfocal. Reflexes are symmetric. Course Vital Signs Vital signs: Vital Signs Temperature 35.9 C L 05/16/25 11:10 Pulse 78 05/16/25 11:10 Respiratory Rate 18 05/16/25 11:10 Blood Pressure 144/67 H 05/16/25 11:10 Pulse Oximetry 100 05/16/25 11:10 Temperature 35.9 C L 05/16/25 11:10 Pulse 78 05/16/25 11:10 Respiratory Rate 18 05/16/25 11:10 Blood Pressure 144/67 H 05/16/25 11:10 Pulse Oximetry 100 05/16/25 11:10 Pain Level 3 05/16/25 11:10 Medical Decision Making 89-year-old female presents to the ER company by EMS with a chief complaint of closed head injury and fall. Patient states that she went out to get the mail and turned around and tripped. She did hit her head, no loss of consciousness, she is ANO x 4 upon arrival. She does have some bruising noted to her left wrist and some left wrist pain. She also is complaining of some right knee pain. She states she was unable to get up after the fall and crawled into her house. CT head ordered due to report of head injury, left wrist x-ray and right knee x-ray. No evidence of intracranial hemorrhage and no acute fractures. Patient was given a wrist splint, was ambulatory with a walker upon discharge from department. Remained hemodynamically stable ANO x 4 throughout the remainder of her stay. This text was generated using [employer] system, please disregard any oddities of phrase or misspellings. 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 Ovalles managed with cortisone - helpful. Physician orders for life-sustaining treatment (POLST) form indicates patient wish for [id number] status (Chronic) Impacted cerumen, right ear (Chronic) managed by ENT Lymphedema of both lower extremities (Chronic) Manages with a pump; right > left Mild cognitive impairment with memory loss (Chronic) Medical History 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 Sister , 80 Cancer Sister No problems noted. Brother No problems noted. Son Cancer Son No problems noted. Son No problems noted. Daughter No problems noted. Daughter No problems noted. Daughter No problems noted. Social History Smoking/Tobacco Use Status: Never Second Hand Exposure: No Smoking risk assessment performed?: Yes Alcohol Intake: never Drug use: Never Substance use type: does not use Caregiver/Support person: No Household members: none Housing: house Number of Children: 6 Communication Needs: None Education Level: high school Details: [employer] Do you need help understanding health information?: Rarely current occupation: retired [employer] from [employer] Pets and animals: No Sexually active: No Do you think of yourself as: straight/heterosexual Current gender identity: decline to answer What is your relationship status?: How often do you talk on the phone with friends or family?: decline to answer How often do you get together with friends or relatives?: decline to answer How often do you attend pentecostal or methodist services?: decline to answer Do you belong to any clubs or organized social groups?: decline to answer Panel score (0-1 are the most socially isolated patients): 0 What type of physical activity do you participate in: walking and weight lifting Duration: 45-60 minutes/day Frequency: daily Estephania/Buddhist: No preference Special estephania needs: No Seatbelt use: always Drive intox or ride w/intox cart driver: No Do you feel safe at home: Yes Do you feel safe in your relationship?: Yes Additional Social history: Lives alone in [facility]
--- NOTE | 2025-05-16 12:10 | DI.RAD_ITS ---
Exam(s) XR WRIST LT COMPLETE EXAM: XR WRIST LT COMPLETE CLINICAL HISTORY: Fall. TECHNIQUE: 2D digital imaging was performed. Three views. COMPARISON: No exams were available for comparison FINDINGS: BONES: No acute fracture is present. No bony destructive lesion is seen. The bones appear osteoporotic. JOINTS: There are severe degenerative changes at this case void trapezium trapezoid and 1st carpal metacarpal joints. There is dorsal tilt of the lunate. SOFT TISSUE: Soft tissue swelling around the wrist. Vascular calcifications. Calcinosis in the triangular fibrocartilage. IMPRESSION: Severe degenerative changes. No acute abnormality. DATA REPOSITORY: RADIATION DOSE DELIVERED:
--- NOTE | 2025-05-16 12:20 | DI.RAD_ITS ---
Exam(s) XR KNEE RT 3V AP,LAT,KATHI EXAM: XR KNEE RT 3V AP,LAT,KATHI CLINICAL HISTORY: Fall. TECHNIQUE: 2D digital imaging was performed. Three views. COMPARISON: CR RIGHT KNEE LIMITED 1 OR 2 VIEW from 11/22/2014 FINDINGS: BONES: No acute fracture is present. No bony destructive lesion is seen. JOINTS: The revised knee prosthesis appears unchanged in alignment. No joint effusion is seen. SOFT TISSUE: Diffuse lower extremity edema. Vascular calcifications. Chronic soft tissue calcifications. IMPRESSION: Unremarkable no acute abnormality. DATA REPOSITORY: RADIATION DOSE DELIVERED:
== END 2025-05-16 13:28 | disposition home or self-care (01) ==
PROVIDERS: Emergency Provider Registered Nurse Emergency; PCP Family Medicine
DX: S09.90XA Unspecified injury of head, initial encounter (principal); S63.502A Unspecified sprain of left wrist, initial encounter; W19.XXXA Unspecified fall, initial encounter
CPT/HCPCS: 99284; 99283; 73562; 70450; 73110